=== PATIENT | female | born 1965 | race American Indian/Alaskan Native ===

== ENCOUNTER 2018-12-13 07:47 | Outpatient (CLI) | payer OTHER ==
--- NOTE | 2018-12-14 12:38 | Nuclear Medicine Report ---
NUCLEAR MEDICINE THYROID UPTAKE MULTIPLE HISTORY: Goiter, ultrasound demonstrates complete nodule mid pole of left lobe and right lobe COMPARISON: None at this facility. TECHNIQUE: 236.8 uCi of I-123 was administered. Anterior and oblique images of the thyroid bed were o btained. 4 and 23 hour uptake values were obtained. FINDINGS: The nuclear medicine images demonstrate a relative cold defect in the mid to superior right thyroid l obe. There is homogeneous distribution of the radiotracer throughout the left lobe and isthmus. 4 hour uptake measures 10.0%. Normal range 4-18%. 23 hour uptake measures 19.5%. Normal range 18-36%. IMPRESSION: 4 and 23 hour uptake values are within normal limits. Focal cold defect in the mid to superior right thyroid lobe. Signer Name: Ever Pires Jr, MD Signed: 12/14/2018 12:34 PM Workstation Name: [id number]
== END 2018-12-13 07:48 | disposition home or self-care (01) ==
LOC: NM 07:47
PROVIDERS: ATTEND Nurse Practitioner
DX: E04.2 Nontoxic multinodular goiter (principal); I11.0 Hypertensive heart disease with heart failure; I50.9 Heart failure, unspecified
CPT/HCPCS: 78012; A9516

== ENCOUNTER 2020-01-15 19:20 | Inpatient (IN) | payer OTHER ==
--- NOTE | 2020-01-15 21:09 | Event Note ---
ED Screening Note ED Screening Note: Patient presents for anasarca and shortness of breath History of cirrhosis On EMS arrival patient hypoxic at 85% and placed on oxygen With oxygen hypoxia has improved Dr. Resendez, ER attending is aware of case and is going to discuss with charge nurse mona to get a room CAITLYN This initial assessment/diagnostic orders/clinical plan/treatment(s) is/are subject to change based on patients health status, clinical progression and re- assessment by fellow clinical providers in the ED. Further treatment and workup at subsequent clinical providers discretion. Patient/guardian urged not to elope from the ED as their condition may be serious if not clinically assessed and managed. Initial orders include: Labs, EKG, x-ray
[2020-01-15 21:33] LABS: INR 1.19 (0.87-1.13); Partial Thromboplastin Time 25.2 Sec. (24.2-36.6)
[2020-01-15 21:34] LABS: Basophils # (Auto) 0.1 K/mm3 (0.0-0.1); Eosinophils % (Auto) 0.3 % (0.0-4.3); Lymphocytes # (Auto) 0.7 K/mm3 (1.2-5.4); Lymphocytes % (Auto) 12.5 % (13.4-35.0); Mean Corpuscular HGB Conc 30 % (30-34); Monocytes # (Auto) 0.4 K/mm3 (0.0-0.8); Monocytes % (Auto) 6.3 % (0.0-7.3); Platelet Count 204 K/mm3 (140-440); Red Blood Count 6.11 M/mm3 (3.65-5.03)
[2020-01-15 21:35] LABS: Hematocrit 39.3 % (30.3-42.9); Hemoglobin 11.9 gm/dl (10.1-14.3); Mean Corpuscular Volume 64 fl (79-97); Red Cell Distribution Width 20.4 % (13.2-15.2)
[2020-01-15 21:43] LABS: Alanine Aminotransferase 24 units/L (7-56); Albumin 3.3 g/dL (3.9-5); Blood Urea Nitrogen 13 mg/dL (7-17); Hemolysis Index 5
[2020-01-15 21:49] LABS: BUN/Creatinine Ratio 19
--- NOTE | 2020-01-15 21:49 | XRay Report ---
CHEST 2 VIEWS INDICATION / CLINICAL INFORMATION: MAIN. COMPARISON: 07/13/2011 FINDINGS: SUPPORT DEVICES: None. HEART / MEDIASTINUM: Cardiomegaly LUNGS / PLEURA: Mild interstitial pulmonary edema with possible small pleural effusions No pneumothor ax. ADDITIONAL FINDINGS: No significant additional findings. IMPRESSION: Mild interstitial pulmonary edema with possible small pleural effusions Signer Name: Yang Lincoln MD FACR Signed: 01/15/2020 9:45 PM Workstation Name: [id number]
[2020-01-15 22:16] LABS: Chol/HDL Ratio 3.02 %; HDL Cholesterol 35 mg/dL (40-59); LDL Cholesterol,Direct 60 mg/dL (50-130)
[2020-01-15] MEDS ORDERED: ASPIRIN 325 MG TAB PO ONE (23:17)
[2020-01-15] MEDS ORDERED: FUROSEMIDE 40 MG/4 ML INJ IV ONE (23:20)
[2020-01-15] MEDS ORDERED: HEPARIN 10,000 UNITS/10 ML VIAL IV ONE (23:44)
--- NOTE | 2020-01-15 23:51 | Emergency Department Report ---
ED Shortness of Breath HPI - General Chief Complaint: Dyspnea/Respdistress Stated Complaint: SWELLING Time Seen by Provider: 01/15/20 21:08 Source: patient Mode of arrival: Wheelchair Limitations: No Limitations - History of Present Illness Initial Comments: 54-year-old female with a past medical history of obesity and hypertension presents to the hospital planing 1 month of progressively worsening shortness of breath and generalized edema. Patient states she has been noncompliant with her amlodipine "20 mg" a day dose for the last 3 weeks. She complains of progressively worsening orthopnea, dry cough, and lower extremity edema extending upwards to her abdominal wall and breast tissue. Patient states she has some slight left-sided chest pain earlier today which has resolved. She denies nausea, vomiting, diaphoresis, recent travel, history of PE/DVT, fever, loss of sense of taste or smell, recent Covid test, Covid exposure, or tobacco use. Patient does not take aspirin daily. As per medical record patient also has a "history of cardiac surgery for left ventricular defect as a child" and a heart murmur. As per triage the patient had a room air saturation of 89% upon EMS arrival however, upon arrival to her room in the ED remained saturation ranging from 93 to 95%. - Related Data Previous Rx's Medication Instructions Recorded Last Taken Type Famotidine [Pepcid] 10 mg PO BID #20 tablet 08/08/13 Unknown Rx diphenhydrAMINE [Benadryl] 25 mg PO Q8HR PRN #30 capsule 08/08/13 Unknown Rx hydroCHLOROthiazide [Hctz] 12.5 mg PO QDAY #30 capsule 08/08/13 Unknown Rx Allergies Allergy/AdvReac Type Severity Reaction Status Date / Time No Known Allergies Allergy Verified 08/08/13 11:26 ED Review of Systems ROS: Stated complaint: SWELLING Other details as noted in HPI Comment: All other systems reviewed and negative ED Past Medical Hx - Past Medical History Previous Medical History?: Yes Hx Hypertension: Yes (currently taking losartan for hypertension) Hx CVA: No Hx Heart Attack/AMI: No Hx Congestive Heart Failure: (has a history of cardiac surgery for left ventricular defect as a child) Hx Diabetes: No Hx Deep Vein Thrombosis: No Hx Pulmonary Embolism: No Hx GERD: No Hx Liver Disease: No Hx Renal Disease: No Hx Sickle Cell Disease: No Hx Arthritis: No Hx Headaches / Migraines: No Hx Seizures: No Hx Kidney Stones: No Hx Psychiatric Treatment: No Hx COPD: No Hx Tuberculosis: No Additional medical history: murmur. uterine fibroids. - Surgical History Past Surgical History?: Yes Hx Open Heart Surgery: Yes (repair hole in ventricle) Additional Surgical History: tubal ligation - Social History Smoking Status: Never Smoker Substance Use Type: None - Medications Home Medications: Home Medications Medication Instructions Recorded Confirmed Last Taken Type Famotidine [Pepcid] 10 mg PO BID #20 tablet 08/08/13 Unknown Rx diphenhydrAMINE [Benadryl] 25 mg PO Q8HR PRN #30 capsule 08/08/13 Unknown Rx hydroCHLOROthiazide [Hctz] 12.5 mg PO QDAY #30 capsule 08/08/13 Unknown Rx ED Physical Exam - General Limitations: No Limitations - Other Other exam information: General: No acute distress Head: Atraumatic Eyes: normal appearance ENT: Moist mucous membranes Neck: Normal appearance, no midline tenderness Chest: Bilateral crackles, no tachypnea or accessory muscle use CV: Regular rate and rhythm Abdomen: Soft, normal bowel sounds, abdominal wall edema nontender, nondistended, no rebound or guarding Back: Normal inspection Extremity: 3+ pitting edema to lower extremities with edema extending up to abdo tez wall and breast tissue Neuro: Alert O x 3, no facial asymmetry, speech clear, no gross motor sensory deficit Psych: Appropriate behavior Skin: No rash ED Course Vital Signs 01/15/20 01/15/20 01/15/20 19:40 19:41 20:52 Temperature 98.5 F 97.5 F L Pulse Rate 124 H 115 H 106 H Respiratory 24 24 18 Rate Blood Pressure 151/89 112/73 O2 Sat by Pulse 95 100 100 Oximetry - Consultations Consultation #1: 01/15/20 23:47 Case was discussed with on-call weight loss sales consultant Dr. Delvin Crocker who recommends heparin drip and will consult ED Medical Decision Making - Lab Data Result diagrams: 01/15/20 21:01 01/15/20 21:01 Lab Results 01/15/20 01/15/20 01/15/20 Range/Units 21:01 21:01 21:01 WBC 5.8 (4.5-11.0) K/mm3 RBC 6.11 H (3.65-5.03) M/mm3 Hgb 11.9 (10.1-14.3) gm/dl Hct 39.3 (30.3-42.9) % MCV 64 L (79-97) fl MCH 19 L (28-32) pg MCHC 30 (30-34) % RDW 20.4 H (13.2-15.2) % Plt Count 204 (140-440) K/mm3 Lymph % (Auto) 12.5 L (13.4-35.0) % Lander % (Auto) 6.3 (0.0-7.3) % Eos % (Auto) 0.3 (0.0-4.3) % Baso % (Auto) Vp Sales Lymph # (Auto) 0.7 L (1.2-5.4) K/mm3 Lander # (Auto) 0.4 (0.0-0.8) K/mm3 Eos # (Auto) 0.0 (0.0-0.4) K/mm3 Baso # (Auto) 0.1 (0.0-0.1) K/mm3 Seg Neutrophils % 79.8 H (40.0-70.0) % Seg Neutrophils # 4.7 (1.8-7.7) K/mm3 PT 15.1 H (12.2-14.9) Sec. INR 1.19 H (0.87-1.13) APTT 25.2 (24.2-36.6) Sec. Sodium 137 (137-145) mmol/L Potassium 4.4 (3.6-5.0) mmol/L Chloride 100.9 (98-107) mmol/L Carbon Dioxide 25 (22-30) mmol/L Anion Gap 16 mmol/L BUN 13 (7-17) mg/dL Creatinine 0.7 (0.6-1.2) mg/dL Estimated GFR > 60 ml/min BUN/Creatinine Ratio 19 % Glucose 127 H (65-100) mg/dL Calcium 9.0 (8.4-10.2) mg/dL Total Bilirubin 0.40 (0.1-1.2) mg/dL AST 37 (5-40) units/L ALT 24 (7-56) units/L Alkaline Phosphatase 62 (35-129) units/L Troponin T 0.286 H* (0.00-0.029) ng/mL NT-Pro-B Natriuret Pep 1893 H (0-900) pg/mL Total Protein 5.8 L (6.3-8.2) g/dL Albumin 3.3 L (3.9-5) g/dL Albumin/Globulin Ratio 1.3 % Triglycerides 81 (2-149) mg/dL Cholesterol 106 (50-199) mg/dL LDL Cholesterol Direct 60 (50-130) mg/dL HDL Cholesterol 35 L (40-59) mg/dL Cholesterol/HDL Ratio 3.02 % Lipase 38 (13-60) units/L 01/15/20 Range/Units 22:23 WBC (4.5-11.0) K/mm3 RBC (3.65-5.03) M/mm3 Hgb (10.1-14.3) gm/dl Hct (30.3-42.9) % MCV (79-97) fl MCH (28-32) pg MCHC (30-34) % RDW (13.2-15.2) % Plt Count (140-440) K/mm3 Lymph % (Auto) (13.4-35.0) % Lander % (Auto) (0.0-7.3) % Eos % (Auto) (0.0-4.3) % Baso % (Auto) Lymph # (Auto) (1.2-5.4) K/mm3 Lander # (Auto) (0.0-0.8) K/mm3 Eos # (Auto) (0.0-0.4) K/mm3 Baso # (Auto) (0.0-0.1) K/mm3 Seg Neutrophils % (40.0-70.0) % Seg Neutrophils # (1.8-7.7) K/mm3 PT (12.2-14.9) Sec. INR (0.87-1.13) APTT (24.2-36.6) Sec. Sodium (137-145) mmol/L Potassium (3.6-5.0) mmol/L Chloride (98-107) mmol/L Carbon Dioxide (22-30) mmol/L Anion Gap mmol/L BUN (7-17) mg/dL Creatinine (0.6-1.2) mg/dL Estimated GFR ml/min BUN/Creatinine Ratio % Glucose (65-100) mg/dL Calcium (8.4-10.2) mg/dL Total Bilirubin (0.1-1.2) mg/dL AST (5-40) units/L ALT (7-56) units/L Alkaline Phosphatase (35-129) units/L Troponin T 0.368 H* D (0.00-0.029) ng/mL NT-Pro-B Natriuret Pep (0-900) pg/mL Total Protein (6.3-8.2) g/dL Albumin (3.9-5) g/dL Albumin/Globulin Ratio % Triglycerides (2-149) mg/dL Cholesterol (50-199) mg/dL LDL Cholesterol Direct (50-130) mg/dL HDL Cholesterol (40-59) mg/dL Cholesterol/HDL Ratio % Lipase (13-60) units/L - EKG Data -: EKG Interpreted by Me (pvc's RBBB, LPFB) EKG shows normal: sinus rhythm, ST-T waves (no stemi) Rate: tachycardia (103) - Radiology Data Radiology results: report reviewed CHEST 2 VIEWS INDICATION / CLINICAL INFORMATION: MAIN. COMPARISON: 07/13/2011 FINDINGS: SUPPORT DEVICES: None. HEART / MEDIASTINUM: Cardiomegaly LUNGS / PLEURA: Mild interstitial pulmonary edema with possible small pleural effusions No pneumothorax. ADDITIONAL FINDINGS: No significant additional findings. IMPRESSION: Mild interstitial pulmonary edema with possible small pleural effusions - Medical Decision Making 54-year-old female presents to the hospital with classic symptoms of shortness of breath and edema. Positive new onset CHF with BP medication noncompliance. Patient did endorse some mild chest pain earlier today has elevated troponin x2 without ST elevation NV on EKG. Case discussed with weight loss sales consultant and consult ordered. In addition to Lasix, aspirin, heparin drip initiated. Supplemental oxygen as needed. Patient to be admitted to telemetry under the hospitalist service. Critical Care Time: No Critical care attestation.: If time is entered above; I have spent that time in minutes in the direct care of this critically ill patient, excluding procedure time. ED Disposition Clinical Impression: New onset of congestive heart failure, Anasarca, Pulmonary edema, Noncompliance with medication regimen, Elevated troponin, History of hypertension Disposition: OP ADMIT IP TO THIS HOSP Is pt being admited?: Yes Condition: Stable Instructions: Pulmonary Edema (ED) Referrals: PRIMARY CARE, [Primary Care Provider] - 3-5 Days Time of Disposition: 23:57 (Dr Guerra/hosp)
[2020-01-16] MEDS: HEPARIN/ 0.45% NACL DRIP 25,000 UNIT/500 ML BAG IV SCH ×2 (03:26→14:28)
[2020-01-16] MEDS ORDERED: MORPHINE 2 MG/1 ML INJ IV PRN (03:50)
[2020-01-16] MEDS ORDERED: MAGNESIUM HYDROXIDE (MOM) ORAL LIQD UDC PO PRN (03:50)
[2020-01-16] MEDS ORDERED: NITROGLYCERIN 0.4 MG TAB SUBL SL PRN ×2 (03:50)
[2020-01-16] MEDS ORDERED: MORPHINE 4 MG/1 ML INJ IV PRN (03:50)
[2020-01-16] MEDS ORDERED: ACETAMINOPHEN 325 MG TAB PO PRN (03:50)
[2020-01-16] MEDS ORDERED: ONDANSETRON 4 MG/2 ML INJ IV PRN (03:50)
--- NOTE | 2020-01-16 04:06 | History and Physical Report ---
History of Present Illness Date of examination: 01/15/20 Date of admission: 01/15/20 23:58 Chief complaint: Shortness of breath Chest Pain History of present illness: 54-year-old -[place] female with known history of hypertension, obesity presenting to the emergency room today complaining of shortness of breath and generalized swelling especially in the lower extremity. This has been getting progressively worse over the past 1 month. She admits that she has not been quite compliant with blood pressure medication amlodipine in the last 3 weeks. Patient has had some cough which is nonproductive, she has had orthopnea, swelling in the lower extremities and also the abdomen. She has had some intermittent left-sided chest pain which has since resolved. Patient denies any nausea or vomiting, denies any headache or dizziness, denies any diaphoresis, denies any sick contacts or recent travel. Denies any contact with anyone with COVID-19. Upon arrival in the emergency room today patient was slightly hypoxic on room air with O2 saturation ranging from 89% to 93%. Work-up in the emergency room reveals pulmonary edema. Troponin was also slightly elevated. Patient is being admitted for new onset CHF and elevated troponin. Past History Past Medical History: hypertension Past Surgical History: Other (Heart surgery in childhood,surgery for Uterine fibroid.) Social history: no significant social history Family history: no significant family history Medications and Allergies Allergies Allergy/AdvReac Type Severity Reaction Status Date / Time No Known Allergies Allergy Verified 08/08/13 11:26 Home Medications Medication Instructions Recorded Confirmed Last Taken Type Famotidine [Pepcid] 10 mg PO BID #20 tablet 08/08/13 Unknown Rx diphenhydrAMINE [Benadryl] 25 mg PO Q8HR PRN #30 capsule 08/08/13 Unknown Rx hydroCHLOROthiazide [Hctz] 12.5 mg PO QDAY #30 capsule 08/08/13 Unknown Rx Active Meds: Active Medications Acetaminophen (Tylenol) 650 mg PO Q4H PRN PRN Reason: Pain MILD(1-3)/Fever >100.5/AMAYA Acetaminophen (Tylenol) 650 mg PO Q6H PRN PRN Reason: Pain, Mild (1-3) Aspirin (Ecotrin) 325 mg PO QDAY NESTOR Furosemide (Lasix) 40 mg IV BID@0600,1800 [facility] Heparin Sodium/Sodium Chloride (Heparin/ 0.45% Nacl-25,000 Unit/500 Ml) 25,000 unit in 500 mls @ 20 mls/hr IV TITRATE NESTOR; Protocol Last Admin: 01/16/20 03:26 Dose: 1,000 units/hr, 20 mls/hr Documented by: Magnesium Hydroxide (Milk Of Magnesia) 30 ml PO Q4H PRN PRN Reason: Constipation Morphine Sulfate (Morphine) 2 mg IV Q5MIN PRN PRN Reason: Chest Pain Morphine Sulfate (Morphine) 2 mg IV Q5MIN PRN PRN Reason: Chest Pain unrelieved by NTG Nitroglycerin (Nitrostat) 0.4 mg SL Q5M PRN PRN Reason: Chest Pain Nitroglycerin (Nitrostat) 0.4 mg SL .Q5MIN PRN PRN Reason: Chest Pain Ondansetron HCl (Zofran) 4 mg IV Q8H PRN PRN Reason: Nausea And Vomiting Sodium Chloride (Sodium Chloride Flush Syringe 10 Ml) 10 ml IV BID NESTOR Sodium Chloride (Sodium Chloride Flush Syringe 10 Ml) 10 ml IV PRN PRN PRN Reason: LINE FLUSH Sodium Chloride (Sodium Chloride Flush Syringe 10 Ml) 10 ml IV PRN PRN PRN Reason: LINE FLUSH Review of Systems Constitutional: no fever, no chills Ears, nose, mouth and throat: no nasal congestion, no sore throat Cardiovascular: chest pain, shortness of breath, no palpitations Respiratory: no cough, no wheezing Gastrointestinal: no abdominal pain, no nausea, no vomiting, no diarrhea Genitourinary Female: no flank pain, no dysuria, no hematuria Musculoskeletal: no neck pain, no low back pain Integumentary: no rash, no pruritis Neurological: no headaches, no confusion Psychiatric: no anxiety, no depression Exam - Constitutional Vitals: Temp Pulse Resp BP Pulse Ox 97.5 F L 106 H 18 112/73 100 01/15/20 20:52 01/15/20 20:52 01/15/20 20:52 01/15/20 20:52 01/15/20 20:52 General appearance: Present: no acute distress, well-nourished - EENT Eyes: Present: PERRL, EOM intact. Absent: scleral icterus ENT: hearing intact, clear oral mucosa, dentition normal - Neck Neck: Present: supple, normal ROM - Respiratory Respiratory effort: normal Respiratory: bilateral: rales - Cardiovascular Rhythm: regular Heart Sounds: Present: S1 & S2. Absent: gallop, rub - Extremities Extremities: no ischemia, pulses intact, pulses symmetrical, Full ROM Extremity abnormal: edema (2+ fartun. lower extremity edema) Peripheral Pulses: within normal limits - Abdominal General gastrointestinal: Present: soft, non-tender, non-distended, normal bowel sounds, other (abdominal wall edema). Absent: mass - Integumentary Integumentary: Present: clear, warm, dry. Absent: rash - Musculoskeletal Musculoskeletal: strength equal bilaterally - Psychiatric Psychiatric: appropriate mood/affect, intact judgment & insight, memory intact, cooperative - Neurologic Neurologic: CNII-XII intact, no focal deficits, moves all extremities HEART Score - HEART Score History: Moderately suspicious EKG: Non-specific Age: 45-65 Risk factors: 1-2 risk factors Troponin: Troponin T 0.274 ng/mL (0.00-0.029) H* D 01/16/20 01:23 Troponin: 1-3x normal limit HEART Score: 5 Results - Labs CBC & Chem 7: 01/15/20 21:01 01/15/20 21:01 Labs: Abnormal lab results 01/15/20 01/15/20 01/15/20 Range/Units 21:01 21:01 21:01 RBC 6.11 H (3.65-5.03) M/mm3 MCV 64 L (79-97) fl MCH 19 L (28-32) pg RDW 20.4 H (13.2-15.2) % Lymph % (Auto) 12.5 L (13.4-35.0) % Lymph # (Auto) 0.7 L (1.2-5.4) K/mm3 Seg Neutrophils % 79.8 H (40.0-70.0) % PT 15.1 H (12.2-14.9) Sec. INR 1.19 H (0.87-1.13) Glucose 127 H (65-100) mg/dL Troponin T 0.286 H* (0.00-0.029) ng/mL NT-Pro-B Natriuret Pep 1893 H (0-900) pg/mL Total Protein 5.8 L (6.3-8.2) g/dL Albumin 3.3 L (3.9-5) g/dL HDL Cholesterol 35 L (40-59) mg/dL 01/15/20 01/16/20 Range/Units 22:23 01:23 RBC (3.65-5.03) M/mm3 MCV (79-97) fl MCH (28-32) pg RDW (13.2-15.2) % Lymph % (Auto) (13.4-35.0) % Lymph # (Auto) (1.2-5.4) K/mm3 Seg Neutrophils % (40.0-70.0) % PT (12.2-14.9) Sec. INR (0.87-1.13) Glucose (65-100) mg/dL Troponin T 0.368 H* D 0.274 H* D (0.00-0.029) ng/mL NT-Pro-B Natriuret Pep (0-900) pg/mL Total Protein (6.3-8.2) g/dL Albumin (3.9-5) g/dL HDL Cholesterol (40-59) mg/dL Assessment and Plan - Patient Problems (1) New onset of congestive heart failure Current Visit: Yes Status: Acute Plan to address problem: Patient placed on diuretics. Will monitor input and output and also monitor daily weight. Patient will be scheduled for echocardiogram. We will request cardiology evaluation. (2) Elevated troponin Current Visit: Yes Status: Acute Plan to address problem: We will check serial cardiac enzymes.. Patient started on heparin drip. We will await further evaluation by cardiology. (3) History of hypertension Current Visit: Yes Status: Acute Plan to address problem: We will continue routine home medications once reconciled and monitor vital signs closely. (4) Full code status Current Visit: Yes Status: Acute
[2020-01-16] MEDS: FUROSEMIDE 40 MG/4 ML INJ IV SCH ×2 (08:25→17:07)
--- NOTE | 2020-01-16 12:49 | Consultation ---
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 She is previously unknown to our practice. She presented with c/o progressively worsening SOB, orthopnea, generalized edema and BLE edema for approx 1 month prior to arrival. Pt admits to noncompliance with her home anti-hypertensive regimen - has not taken BP meds in approx 3 weeks because she was trying to control her BP with apple cider vinegar. She denies any chest pain, palpitations, n/v, diaphoresis, dizziness or syncope. She denies any known prior CAD, AMI, HF or arrhythmia. Admission BP 163/89. CXR shows pulmonary edema and pleural effusions. Labwork is significant for pro-BNP 1893 and elevated troponin (0.368 -> 0.274) for which pt was initiated on heparin gtt overnight. Past History Past Medical History: hypertension Past Surgical History: Other (Heart surgery in childhood,surgery for Uterine fibroid.) Social history: no significant social history Family history: no significant family history Medications and Allergies Allergies Allergy/AdvReac Type Severity Reaction Status Date / Time No Known Allergies Allergy Verified 08/08/13 11:26 Home Medications Medication Instructions Recorded Confirmed Last Taken Type Famotidine [Pepcid] 10 mg PO BID #20 tablet 08/08/13 01/16/20 Unknown Rx diphenhydrAMINE [Benadryl] 25 mg PO Q8HR PRN #30 capsule 08/08/13 01/16/20 Unknown Rx hydroCHLOROthiazide [Hctz] 12.5 mg PO QDAY #30 capsule 08/08/13 01/16/20 Unknown Rx Active Meds: Active Medications Acetaminophen (Tylenol) 650 mg PO Q4H PRN PRN Reason: Pain MILD(1-3)/Fever >100.5/AMAYA Furosemide (Lasix) 40 mg IV BID@0600,1800 NESTOR Last Admin: 01/16/20 08:25 Dose: Not Given Documented by: Heparin Sodium/Sodium Chloride (Heparin/ 0.45% Nacl-25,000 Unit/500 Ml) 25,000 unit in 500 mls @ 20 mls/hr IV TITRATE NESTOR; Protocol Last Admin: 01/16/20 03:26 Dose: 1,000 units/hr, 20 mls/hr Documented by: Magnesium Hydroxide (Milk Of Magnesia) 30 ml PO Q4H PRN PRN Reason: Constipation Ondansetron HCl (Zofran) 4 mg IV Q8H PRN PRN Reason: Nausea And Vomiting Sodium Chloride (Sodium Chloride Flush Syringe 10 Ml) 10 ml IV BID NESTOR Last Admin: 01/16/20 09:42 Dose: 10 ml Documented by: Sodium Chloride (Sodium Chloride Flush Syringe 10 Ml) 10 ml IV PRN PRN PRN Reason: LINE FLUSH Review of Systems Constitutional: weight gain, no fever, no chills, no sweats Ears, nose, mouth and throat: no ear pain, no nose pain, no sinus pressure, no sinus pain Cardiovascular: orthopnea, edema, shortness of breath, dyspnea on exertion, paroxysmal nocturnal dyspnea, high blood pressure, leg edema, decreased exercise tolerance, no chest pain, no palpitations, no rapid/irregular heart beat, no syncope, no lightheadedness Respiratory: shortness of breath, dyspnea on exertion, no cough, no congestion, no wheezing Gastrointestinal: no abdominal pain, no nausea, no vomiting, no diarrhea, no constipation, no change in bowel habits Genitourinary Female: no pelvic pain, no flank pain, no dysuria, no urinary frequency, no urgency Musculoskeletal: no neck stiffness, no neck pain, no shooting arm pain, no arm numbness/tingling, no low back pain, no shooting leg pain Integumentary: no rash, no pruritis, no redness, no sores, no wounds Neurological: no head injury, no paralysis, no weakness, no parathesias, no numbness, no tingling, no seizures, no syncope Psychiatric: no anxiety Endocrine: no cold intolerance, no heat intolerance Hematologic/Lymphatic: no easy bruising, no easy bleeding Allergic/Immunologic: no urticaria Physical Examination Vital Signs Pulse Resp Pulse Ox 124 H 24 95 01/15/20 19:40 01/15/20 19:40 01/15/20 19:40 General appearance: no acute distress HEENT: Positive: PERRL, Normocephaly, Mucus Membranes Moist Neck: Positive: neck supple, trachea midline Cardiac: Positive: Reg Rate and Rhythm, S1/S2 Lungs: Positive: Decreased Breath Sounds, Oxygen Neuro: Positive: Grossly Intact Abdomen: Negative: Tender Skin: Negative: Rash Musculoskeletal: No Pain Extremities: Present: edema (generalized), +2 Edema (BLE) Results 01/15/20 21:01 01/15/20 21: Cardiac Enzymes 01/15/20 Range/Units 21:01 AST 37 (5-40) units/L Coagulation 01/15/20 Range/Units 21:01 PT 15.1 H (12.2-14.9) Sec. INR 1.19 H (0.87-1.13) APTT 25.2 (24.2-36.6) Sec. Lipids 01/15/20 Range/Units 21: Triglycerides 81 (2-149) mg/dL Cholesterol 106 (50-199) mg/dL HDL Cholesterol 35 L (40-59) mg/dL Cholesterol/HDL Ratio 3.02 % CBC 01/15/20 Range/Units 21:01 WBC 5.8 (4.5-11.0) K/mm3 RBC 6.11 H (3.65-5.03) M/mm3 Hgb 11.9 (10.1-14.3) gm/dl Hct 39.3 (30.3-42.9) % Plt Count 204 (140-440) K/mm3 Lymph # (Auto) 0.7 L (1.2-5.4) K/mm3 [place] # (Auto) 0.4 (0.0-0.8) K/mm3 Eos # (Auto) 0.0 (0.0-0.4) K/mm3 Baso # (Auto) 0.1 (0.0-0.1) K/mm3 Comprehensive Metabolic Panel 01/15/20 Range/Units 21:01 Sodium 137 (137-145) mmol/L Potassium 4.4 (3.6-5.0) mmol/L Chloride 100.9 (98-107) mmol/L Carbon Dioxide 25 (22-30) mmol/L BUN 13 (7-17) mg/dL Creatinine 0.7 (0.6-1.2) mg/dL Glucose 127 H (65-100) mg/dL Calcium 9.0 (8.4-10.2) mg/dL AST 37 (5-40) units/L ALT 24 (7-56) units/L Alkaline Phosphatase 62 (35-129) units/L Total Protein 5.8 L (6.3-8.2) g/dL Albumin 3.3 L (3.9-5) g/dL - Imaging and Cardiology Echo: pending EKG: report reviewed, image reviewed EKG interpretations - Telemetry EKG Rhythm: Sinus Rhythm - EKG Sinus rhythms and dysrhythmias: sinus rhythm AV and intraventricular conduction: right bundle branch block Assessment and Plan Agree with heparin gtt in setting elevated Damian, although CE elevation appears c/w NSTEMI type II. Cont to trend Damian and f/u ECG in AM. Of note, ECG shows NSR with RBBB of unknown chronicity. Initiate GDMT and cont IV lasix BID. Await echo. Will likely proceed with coronary angiogram once volume status and respiratory status are optimized. Will follow. The patient has been seen in conjunction with Dr. Moore who agrees with the assessment and plan of care. 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
--- NOTE | 2020-01-16 14:41 | Progress Note ---
Assessment and Plan Assessment and plan: (1) New onset of congestive heart failure Current Visit: Yes Status: Acute Plan to address problem: Patient placed on diuretics. Will monitor input and output and also monitor daily weight. Patient will be scheduled for echocardiogram. We will request cardiology evaluation. (2) Elevated troponin Current Visit: Yes Status: Acute Plan to address problem: We will check serial cardiac enzymes.. Patient started on heparin drip. We will await further evaluation by cardiology. (3) History of hypertension Current Visit: Yes Status: Acute Plan to address problem: We will continue routine home medications once reconciled and monitor vital signs closely. (4) Full code status Current Visit: Yes Status: Acute Disposition; continue inpatient care History Interval history: Patient was seen and evaluated this morning Patient is still complaining shortness of breath but improving from admission condition Hospitalist Physical - Physical exam Narrative exam: Not in cardiopulmonary distress. The patient appeared well nourished and normally developed. Vital signs as documented. Head exam is unremarkable. No scleral icterus . Neck is without jugular venous distension, thyromegaly, or carotid bruits. Lungs significant for rales. Cardiac exam reveals regular rate and Rhythm. Abdominal exam reveals normal bowel sounds, nontender, no organomegaly. Extremities are +2 pedal and pretibial edema. 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 No focal weakness. - Constitutional Vitals: Temp Pulse Resp BP Pulse Ox 98.3 F 98 H 20 151/86 96 01/16/20 13:00 01/16/20 13:00 01/16/20 13:00 01/16/20 13:00 01/16/20 13:00 General appearance: Present: no acute distress HEART Score - HEART Score EKG: Non-specific Age: 45-65 Risk factors: 1-2 risk factors Troponin: Troponin T 0.274 ng/mL (0.00-0.029) H* D 01/16/20 01:23 Troponin: 1-3x normal limit Results - Labs CBC & Chem 7: 01/15/20 21:01 01/15/20 21:01 Labs: Laboratory Last Values WBC 5.8 K/mm3 (4.5-11.0) 01/15/20 21:01 RBC 6.11 M/mm3 (3.65-5.03) H 01/15/20 21:01 Hgb 11.9 gm/dl (10.1-14.3) 01/15/20 21:01 Hct 39.3 % (30.3-42.9) 01/15/20 21: MCV 64 fl (79-97) L 01/15/20 21:01 MCH 19 pg (28-32) L 01/15/20 21:01 MCHC 30 % (30-34) 01/15/20 21: RDW 20.4 % (13.2-15.2) H 01/15/20 21:01 Plt Count 204 K/mm3 (140-440) 01/15/20 21:01 Lymph % (Auto) 12.5 % (13.4-35.0) L 01/15/20 21:01 [place] % (Auto) 6.3 % (0.0-7.3) 01/15/20 21: Eos % (Auto) 0.3 % (0.0-4.3) 01/15/20 21: Baso % (Auto) Firmware Engineer 01/15/20 21: Lymph # (Auto) 0.7 K/mm3 (1.2-5.4) L 01/15/20 21:01 [place] # (Auto) 0.4 K/mm3 (0.0-0.8) 01/15/20 21:01 Eos # (Auto) 0.0 K/mm3 (0.0-0.4) 01/15/20 21:01 Baso # (Auto) 0.1 K/mm3 (0.0-0.1) 01/15/20 21: Seg Neutrophils % 79.8 % (40.0-70.0) H 01/15/20 21: Seg Neutrophils # 4.7 K/mm3 (1.8-7.7) 01/15/20 21:01 PT 15.1 Sec. (12.2-14.9) H 01/15/20 21: INR 1.19 (0.87-1.13) H 01/15/20 21:01 APTT 25.2 Sec. (24.2-36.6) 01/15/20 21:01 Heparin Anti-Xa Level 0.55 U.I./ml (0.3-0.7) 01/16/20 09:59 Sodium 137 mmol/L (137-145) 01/15/20 21:01 Potassium 4.4 mmol/L (3.6-5.0) 01/15/20 21:01 Chloride 100.9 mmol/L (98-107) 01/15/20 21:01 Carbon Dioxide 25 mmol/L (22-30) 01/15/20 21:01 Anion Gap 16 mmol/L 01/15/20 21:01 BUN 13 mg/dL (7-17) 01/15/20 21:01 Creatinine 0.7 mg/dL (0.6-1.2) 01/15/20 21:01 Estimated GFR > 60 ml/min 01/15/20 21:01 BUN/Creatinine Ratio 19 % 01/15/20 21:01 Glucose 127 mg/dL (65-100) H 01/15/20 21:01 Calcium 9.0 mg/dL (8.4-10.2) 01/15/20 21:01 Total Bilirubin 0.40 mg/dL (0.1-1.2) 01/15/20 21:01 AST 37 units/L (5-40) 01/15/20 21:01 ALT 24 units/L (7-56) 01/15/20 21:01 Alkaline Phosphatase 62 units/L (35-129) 01/15/20 21:01 Troponin T 0.274 ng/mL (0.00-0.029) H* D 01/16/20 01:23 NT-Pro-B Natriuret Pep 1893 pg/mL (0-900) H 01/15/20 21:01 Total Protein 5.8 g/dL (6.3-8.2) L 01/15/20 21:01 Albumin 3.3 g/dL (3.9-5) L 01/15/20 21:01 Albumin/Globulin Ratio 1.3 % 01/15/20 21:01 Triglycerides 81 mg/dL (2-149) 01/15/20 21:01 Cholesterol 106 mg/dL (50-199) 01/15/20 21:01 LDL Cholesterol Direct 60 mg/dL (50-130) 01/15/20 21:01 HDL Cholesterol 35 mg/dL (40-59) L 01/15/20 21:01 Cholesterol/HDL Ratio 3.02 % 01/15/20 21:01 Lipase 38 units/L (13-60) 01/15/20 21:01 Cao/IV: Voiding Method External Female Catheter IV Catheter Type [Right Hand] INT / Saline Lock Active Medications - Current Medications Current Medications: Generic Name Dose Route Start Last Admin Trade Name Freq PRN Reason Stop Dose Admin Acetaminophen 650 mg 01/16/20 03:50 Tylenol PO Q4H PRN Pain MILD(1-3)/Fever >100.5/AMAYA Aspirin 325 mg 01/17/20 10:00 Aspirin PO QDAY [facility] Atorvastatin Calcium 40 mg 01/16/20 22:00 Lipitor PO QHS [facility]1983 Carvedilol 6.25 mg 01/16/20 22:00 Coreg PO BID [facility]1983 Furosemide 40 mg 01/16/20 06:00 01/16/20 08:25 Lasix IV Not Given BID@0600,1800 [facility] Heparin Sodium/Sodium Chloride 25,000 unit in 500 mls @ 20 mls/hr 01/15/20 23:45 01/16/20 14:28 Heparin/ 0.45% Nacl-25,000 Unit/500 Ml IV 1,000 units/hr TITRATE NESTOR 20 mls/hr Administration Protocol 1,000 UNITS/HR Losartan Potassium 25 mg 01/17/20 10:00 Cozaar PO QDAY [facility] Magnesium Hydroxide 30 ml 01/16/20 03:50 Milk Of Magnesia PO Q4H PRN Constipation Ondansetron HCl 4 mg 01/16/20 03:50 Zofran IV Q8H PRN Nausea And Vomiting Sodium Chloride 10 ml 01/16/20 10:00 01/16/20 09:42 Sodium Chloride Flush Syringe 10 Ml IV 10 ml BID [facility] Administration Sodium Chloride 10 ml 01/16/20 03:50 Sodium Chloride Flush Syringe 10 Ml IV PRN PRN LINE FLUSH
--- NOTE | 2020-01-16 18:13 | Event Note ---
Date: 01/16/20 Echocardiogram showed LV thrombus,would continue iv heparin.
[2020-01-16] MEDS: ACETAMINOPHEN 325 MG TAB PO PRN (21:41)
[2020-01-16] MEDS: carvediloL 6.25 MG TAB PO SCH (21:41)
[2020-01-17] MEDS: HEPARIN/ 0.45% NACL DRIP 25,000 UNIT/500 ML BAG IV SCH ×2 (04:35→11:05)
[2020-01-17] MEDS: FUROSEMIDE 40 MG/4 ML INJ IV SCH ×2 (05:16→17:23)
[2020-01-17 06:29] LABS: Basophils % (Auto) 0.6 % (0.0-1.8); Eosinophils # (Auto) 0.1 K/mm3 (0.0-0.4); Eosinophils % (Auto) 2.2 % (0.0-4.3); Lymphocytes # (Auto) 1.2 K/mm3 (1.2-5.4); Lymphocytes % (Auto) 22.7 % (13.4-35.0); Mean Corpuscular HGB Conc 30 % (30-34); Monocytes # (Auto) 0.6 K/mm3 (0.0-0.8); Monocytes % (Auto) 10.5 % (0.0-7.3); Platelet Count 196 K/mm3 (140-440); Red Blood Count 5.85 M/mm3 (3.65-5.03)
[2020-01-17 06:31] LABS: Hematocrit 36.8 % (30.3-42.9); Hemoglobin 11.2 gm/dl (10.1-14.3); Mean Corpuscular Volume 63 fl (79-97); Red Cell Distribution Width 20.4 % (13.2-15.2)
[2020-01-17 06:34] LABS: INR 1.13 (0.87-1.13)
[2020-01-17 06:47] LABS: Blood Urea Nitrogen 11 mg/dL (7-17); Calcium 8.8 mg/dL (8.4-10.2); Hemolysis Index 7
[2020-01-17 06:49] LABS: BUN/Creatinine Ratio 16
--- NOTE | 2020-01-17 09:11 | Progress Note ---
Assessment and Plan Assessment and plan: (1) New onset of congestive heart failure Current Visit: Yes Status: Acute Plan to address problem: Patient placed on diuretics. Will monitor input and output and also monitor daily weight. Patient will be scheduled for echocardiogram. We will request cardiology evaluation. Left ventricular thrombus -Echo was done and showed ejection fraction of 40 to 45%, basal inferoseptal and mid inferoseptal wall segments are akinetic. -There is a large left ventricular thrombus and patient is on heparin -Cardiology is following the patient (2) Elevated troponin Current Visit: Yes Status: Acute Plan to address problem: We will check serial cardiac enzymes.. Patient started on heparin drip. We will await further evaluation by cardiology. (3) History of hypertension Current Visit: Yes Status: Acute Plan to address problem: We will continue routine home medications once reconciled and monitor vital signs closely. (4) Full code status Current Visit: Yes Status: Acute Disposition; continue inpatient care History Interval history: Patient was seen and evaluated this morning Patient is still complaining shortness of breath but improving from admission condition Hospitalist Physical - Physical exam Narrative exam: Not in cardiopulmonary distress. The patient appeared well nourished and normally developed. Vital signs as documented. Head exam is unremarkable. No scleral icterus . Neck is without jugular venous distension, thyromegaly, or carotid bruits. Lungs significant for rales. Cardiac exam reveals regular rate and Rhythm. Abdominal exam reveals normal bowel sounds, nontender, no organomegaly. Extremities are +2 pedal and pretibial edema. NURSING EDUCATION SPECIALIST: Alert and oriented 3. No focal weakness. - Constitutional Vitals: Temp Pulse Resp BP Pulse Ox 97.8 F 96 H 20 117/72 97 01/17/20 07:54 01/17/20 08:42 01/17/20 08:42 01/17/20 07:54 01/17/20 07:54 General appearance: Present: no acute distress HEART Score - HEART Score EKG: Non-specific Age: 45-65 Risk factors: 1-2 risk factors Troponin: Troponin T 0.255 ng/mL (0.00-0.029) H* 01/17/20 05:34 Troponin: 1-3x normal limit Results - Labs CBC & Chem 7: 01/17/20 05:34 01/17/20 05:34 Labs: Laboratory Last Values WBC 5.3 K/mm3 (4.5-11.0) 01/17/20 05:34 RBC 5.85 M/mm3 (3.65-5.03) H 01/17/20 05:34 Hgb 11.2 gm/dl (10.1-14.3) 01/17/20 05:34 Hct 36.8 % (30.3-42.9) 01/17/20 05:34 MCV 63 fl (79-97) L 01/17/20 05:34 MCH 19 pg (28-32) L 01/17/20 05:34 MCHC 30 % (30-34) 01/17/20 05:34 RDW 20.4 % (13.2-15.2) H 01/17/20 05:34 Plt Count 196 K/mm3 (140-440) 01/17/20 05:34 Lymph % (Auto) 22.7 % (13.4-35.0) 01/17/20 05:34 [place] % (Auto) 10.5 % (0.0-7.3) H 01/17/20 05:34 Eos % (Auto) 2.2 % (0.0-4.3) 01/17/20 05:34 Baso % (Auto) 0.6 % (0.0-1.8) 01/17/20 05:34 Lymph # (Auto) 1.2 K/mm3 (1.2-5.4) 01/17/20 05:34 [place] # (Auto) 0.6 K/mm3 (0.0-0.8) 01/17/20 05:34 Eos # (Auto) 0.1 K/mm3 (0.0-0.4) 01/17/20 05:34 Baso # (Auto) 0.0 K/mm3 (0.0-0.1) 01/17/20 05:34 Seg Neutrophils % 64.0 % (40.0-70.0) 01/17/20 05:34 Seg Neutrophils # 3.4 K/mm3 (1.8-7.7) 01/17/20 05:34 PT 14.4 Sec. (12.2-14.9) 01/17/20 05:34 INR 1.13 (0.87-1.13) 01/17/20 05:34 APTT 25.2 Sec. (24.2-36.6) 01/15/20 21:01 Heparin Anti-Xa Level 0.55 U.I./ml (0.3-0.7) 01/16/20 09:59 Sodium 138 mmol/L (137-145) 01/17/20 05:34 Potassium 3.6 mmol/L (3.6-5.0) 01/17/20 05:34 Chloride 97.8 mmol/L (98-107) L 01/17/20 05:34 Carbon Dioxide 32 mmol/L (22-30) H D 01/17/20 05:34 Anion Gap 12 mmol/L 01/17/20 05:34 BUN 11 mg/dL (7-17) 01/17/20 05:34 Creatinine 0.7 mg/dL (0.6-1.2) 01/17/20 05:34 Estimated GFR > 60 ml/min 01/17/20 05:34 BUN/Creatinine Ratio 16 % 01/17/20 05:34 Glucose 108 mg/dL (65-100) H 01/17/20 05:34 Calcium 8.8 mg/dL (8.4-10.2) 01/17/20 05:34 Total Bilirubin 0.40 mg/dL (0.1-1.2) 01/15/20 21:01 AST 37 units/L (5-40) 01/15/20 21:01 ALT 24 units/L (7-56) 01/15/20 21:01 Alkaline Phosphatase 62 units/L (35-129) 01/15/20 21:01 Troponin T 0.255 ng/mL (0.00-0.029) H* 01/17/20 05:34 NT-Pro-B Natriuret Pep 1893 pg/mL (0-900) H 01/15/20 21:01 Total Protein 5.8 g/dL (6.3-8.2) L 01/15/20 21:01 Albumin 3.3 g/dL (3.9-5) L 01/15/20 21:01 Albumin/Globulin Ratio 1.3 % 01/15/20 21:01 Triglycerides 81 mg/dL (2-149) 01/15/20 21:01 Cholesterol 106 mg/dL (50-199) 01/15/20 21:01 LDL Cholesterol Direct 60 mg/dL (50-130) 01/15/20 21:01 HDL Cholesterol 35 mg/dL (40-59) L 01/15/20 21:01 Cholesterol/HDL Ratio 3.02 % 01/15/20 21:01 Lipase 38 units/L (13-60) 01/15/20 21:01 - Diagnostic Impressions Diagnostic Impressions: Echocardiogram 01/16/20 03:58 Transthoracic Echocardiogram Indication: SOB BP: 133/79 HR: 105 Conclusions *The left ventricular chamber size is normal. *There is no left ventricular hypertrophy. *The estimated ejection fraction is 40-45%. *The basal inferoseptal, and mid inferoseptal wall segments are akinetic. *The left atrial chamber size is normal. *The right atrium is mildly dilated. *The right ventricle is mild to moderately dilated. Moderate pulmonary hypertension noted. *The right ventricular global systolic function is normal. * A thrombus is visualized in the left ventricle. There is fairly large,slightly mobile mass noted in apical area,c/w thrombus. There is an echogenic density structure in left ventricular measuring 1.95x1.99cm. Findings Left Ventricle: The left ventricular chamber size is normal. There is no left ventricular hypertrophy. The estimated ejection fraction is 40-45%. The basal inferoseptal, and mid inferoseptal wall segments are akinetic. A thrombus is visualized in the left ventricle.There is fairly large,slightly mobile mass noted in apical area,c/w thrombus. Left Atrium: The left atrial chamber size is normal. Right Ventricle: The right ventricle is mild to moderately dilated. The right ventricular global systolic function is normal. Right Atrium: The right atrium is mildly dilated. Aortic Valve: Mild aortic leaflet calcification is visualized. There is no evidence of aortic regurgitation. Mitral Valve: The mitral valve leaflets are mildly thickened. There is mild to moderate mitral regurgitation. Tricuspid Valve: The tricuspid valve leaflets are normal. There is mild tricuspid regurgitation. There is evidence of moderate pulmonary hypertension. Pulmonic Valve: There is no evidence of pulmonic valve thickening. There is no evidence of pulmonic regurgitation. Pericardium: There is no pericardial effusion. Aorta: The aorta appears normal. Venous: The inferior vena cava is not visualized. Contrast: Intravenous contrast was used to enhance endocardial border definition. Measurements Chambers 2D Name Value Normal Range IVSd (2D) 0.97 cm (0.6 - 1.1) LVPWd (2D) 0.92 cm (0.6 - 1.1) LVIDd (2D) 5.71 cm (3.7 - 5.6) LVIDs (2D) 4.41 cm (2 - 3.8) LV FS (2D) 22.78 % - EF Teichholz (2D) 45.16 % - Ao root diameter (2D) 2.71 cm (2 - 3.7) Volumes/Mass Name Value Normal Range LA ESV SP 4CH (A/L) 39.91 ml - LA ESV SP 2CH (A/L) 85.03 ml - LA ESV BP (A/L) 59.07 ml - LA ESV BP (A/L) index 29.83 ml/m2 - LA ESV SP 4CH (MOD) 37.67 ml - LA ESV SP 2CH (MOD) 78.85 ml - LA ESV BP (MOD) 53.69 ml - LA ESV BP (MOD) index 27.12 ml/m2 - Aortic Valve Name Value Normal Range AV Vmax 1.46 m/sec - AV VTI 22.97 cm - AV peak gradient 8.48 mmHg - AV mean gradient 4.53 mmHg - LVOT diameter 1.77 cm - LVOT Vmax 0.69 m/sec - LVOT VTI 12.12 cm - LVOT peak gradient 1.93 mmHg - LVOT mean gradient 1.06 mmHg - SV LVOT 29.95 ml - BETI (continuity Vmax) 1.18 cm2 - BETI (continuity VTI) 1.3 cm2 - Ascending Ao 2.92 cm - Mitral Valve Name Value Normal Range MV PHT 68.81 msec - MR Vmax 4.98 m/sec - MVA (PHT) 3.2 cm2 - Tricuspid Valve Name Value Normal Range TR Vmax 3.17 m/sec - TR peak gradient 40.11 mmHg - RAP 8 mmHg - RVSP 48 mmHg - Pulmonic Valve/Qp:Qs Name Value Normal Range PV Vmax 0.72 m/sec - PV peak gradient 2.09 mmHg - PV acceleration time 182.68 msec - Wallmotion BAS Not Seen BA Not Seen BAL Not Seen ABBY Not Seen BI Not Seen BIS Akinetic MAS Not Seen MA Not Seen MAL Not Seen MIL Not Seen FL Not Seen MIS Akinetic Not Seen AA Not Seen AL Not Seen AI Not Seen APEX Not Seen Cao/IV: Voiding Method External Female Catheter IV Catheter Type [Right Hand] INT / Saline Lock Active Medications - Current Medications Current Medications: Generic Name Dose Route Start Last Admin Trade Name Freq PRN Reason Stop Dose Admin Acetaminophen 650 mg 01/16/20 03:50 01/16/20 21:41 Tylenol PO 650 mg Q4H PRN Administration Pain MILD(1-3)/Fever >100.5/AMAYA Aspirin 325 mg 01/17/20 10:00 Aspirin PO QDAY NESTOR Atorvastatin Calcium 40 mg 01/16/20 22:00 01/16/20 21:42 Lipitor PO 40 mg QHS NESTOR Administration Carvedilol 6.25 mg 01/16/20 22:00 01/16/20 21:41 Coreg PO 6.25 mg BID NESTOR Administration Furosemide 40 mg 01/16/20 06:00 01/17/20 05:16 Lasix IV 40 mg BID@0600,1800 NESTOR Administration Heparin Sodium/Sodium Chloride 25,000 unit in 500 mls @ 20 mls/hr 01/15/20 23: 45 01/17/20 04:35 Heparin/ 0.45% Nacl-25,000 Unit/500 Ml IV 1,000 units/hr TITRATE NESTOR 20 mls/hr Administration Protocol 1,000 UNITS/HR Losartan Potassium 25 mg 01/17/20 10:00 Cozaar PO QDAY NESTOR Magnesium Hydroxide 30 ml 01/16/20 03:50 Milk Of Magnesia PO Q4H PRN Constipation Ondansetron HCl 4 mg 01/16/20 03:50 Zofran IV Q8H PRN Nausea And Vomiting Sodium Chloride 10 ml 01/16/20 10:00 01/16/20 21:42 Sodium Chloride Flush Syringe 10 Ml IV 10 ml BID NESTOR Administration Sodium Chloride 10 ml 01/16/20 03:50 Sodium Chloride Flush Syringe 10 Ml IV PRN PRN LINE FLUSH
[2020-01-17] MEDS: carvediloL 6.25 MG TAB PO SCH ×2 (09:33→21:11)
[2020-01-17] MEDS: LOSARTAN 25 MG TAB PO SCH (09:33)
[2020-01-17] MEDS: ASPIRIN 325 MG TAB PO SCH (09:33)
[2020-01-17] MEDS: ACETAMINOPHEN 325 MG TAB PO PRN ×2 (09:34→19:33)
[2020-01-17] MEDS ORDERED: ASPIRIN EC 325 MG TAB PO SCH (10:00)
--- NOTE | 2020-01-17 12:00 | Progress Note ---
Assessment and Plan tte reviewed - EF 40-45%, basal inferoseptal and mid inferoseptal akinesis, RA mildly dilated, RV mild to mod dilated, mod pulm HTN with RVSP 48mmHg, thrombus visualized in LV - fairly large and slightly mobile in apical area. Cont heparin gtt and will plan for initiation of OAC prior to discharge. Will likely post- pone ischemic evaluation in setting of LV thrombus - will likely plan to pursue as OP. Cont GDMT and IV lasix BID. Add zaroxolyn today for additional diuresis. The patient has been seen in conjunction with Dr. Moore who agrees with the assessment and plan of care. - Patient Problems (1) Acute HFrEF (heart failure with reduced ejection fraction) Current Visit: Yes Status: Acute (2) Cardiomyopathy Current Visit: Yes Status: Acute (3) LV (left ventricular) mural thrombus Current Visit: Yes Status: Chronic (4) Pulmonary edema Current Visit: Yes Status: Acute (5) NSTEMI (non-ST elevated myocardial infarction) Current Visit: Yes Status: Acute Plan to address problem: suspect type II (6) Uncontrolled hypertension Current Visit: Yes Status: Acute (7) Morbid obesity Current Visit: Yes Status: Chronic (8) Noncompliance with medication regimen Current Visit: Yes Status: Chronic (9) RBBB Current Visit: Yes Status: Acute (10) History of congenital heart defect Current Visit: Yes Status: Chronic Plan to address problem: 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 tele reviewed - in SR with 10 beat NSVT noted this AM, pt asymptomatic. Objective Last Vital Signs Temp 97.8 F 01/17/20 07:54 Pulse 97 H 01/17/20 09:33 Resp 20 01/17/20 08:42 BP 124/73 01/17/20 09:33 Pulse Ox 97 01/17/20 07:54 - Physical Examination General: No Apparent Distress HEENT: Positive: PERRL, Normocephaly, Mucus Membranes Moist Neck: Positive: neck supple, trachea midline Cardiac: Positive: Reg Rate and Rhythm, S1/S2 Lungs: Positive: Decreased Breath Sounds Neuro: Positive: Grossly Intact Abdomen: Negative: Tender Skin: Negative: Rash Musculoskeletal: No Pain Extremities: Present: edema (generalized), +2 Edema (BLE) - Labs and Meds Coagulation 01/17/20 Range/Units 05:34 PT 14.4 (12.2-14.9) Sec. INR 1.13 (0.87-1.13) CBC 01/17/20 Range/Units 05:34 WBC 5.3 (4.5-11.0) K/mm3 RBC 5.85 H (3.65-5.03) M/mm3 Hgb 11.2 (10.1-14.3) gm/dl Hct 36.8 (30.3-42.9) % Plt Count 196 (140-440) K/mm3 Lymph # (Auto) 1.2 (1.2-5.4) K/mm3 [place] # (Auto) 0.6 (0.0-0.8) K/mm3 Eos # (Auto) 0.1 (0.0-0.4) K/mm3 Baso # (Auto) 0.0 (0.0-0.1) K/mm3 Comprehensive Metabolic Panel 01/17/20 Range/Units 05:34 Sodium 138 (137-145) mmol/L Potassium 3.6 (3.6-5.0) mmol/L Chloride 97.8 L (98-107) mmol/L Carbon Dioxide 32 H D (22-30) mmol/L BUN 11 (7-17) mg/dL Creatinine 0.7 (0.6-1.2) mg/dL Glucose 108 H (65-100) mg/dL Calcium 8.8 (8.4-10.2) mg/dL - Imaging and Cardiology EKG: report reviewed, image reviewed Echo: report reviewed - Telemetry EKG Rhythm: Sinus Rhythm - EKG Sinus rhythms and dysrhythmias: sinus rhythm AV and intraventricular conduction: right bundle branch block
[2020-01-17] MEDS: metOLazone 2.5 MG TAB PO SCH (17:23)
[2020-01-18] MEDS: ACETAMINOPHEN 325 MG TAB PO PRN ×2 (02:40→15:29)
[2020-01-18] MEDS: FUROSEMIDE 40 MG/4 ML INJ IV SCH ×2 (06:00→17:59)
[2020-01-18 06:27] LABS: Blood Urea Nitrogen 10 mg/dL (7-17); Calcium 8.7 mg/dL (8.4-10.2); Hemolysis Index 0
[2020-01-18 06:35] LABS: BUN/Creatinine Ratio 14
--- NOTE | 2020-01-18 08:40 | Progress Note ---
Assessment and Plan Assessment and plan: (1) New onset of congestive heart failure Current Visit: Yes Status: Acute Plan to address problem: Patient placed on diuretics. Will monitor input and output and also monitor daily weight. Patient will be scheduled for echocardiogram. We will request cardiology evaluation. Left ventricular thrombus -Echo was done and showed ejection fraction of 40 to 45%, basal inferoseptal and mid inferoseptal wall segments are akinetic. -There is a large left ventricular thrombus and patient is on heparin -Cardiology is following the patient (2) Elevated troponin Current Visit: Yes Status: Acute Plan to address problem: We will check serial cardiac enzymes.. Patient started on heparin drip. We will await further evaluation by cardiology. (3) History of hypertension Current Visit: Yes Status: Acute Plan to address problem: We will continue routine home medications once reconciled and monitor vital signs closely. (4) Full code status Current Visit: Yes Status: Acute 01/18/2020; patient is on IV Lasix, metolazone, carvedilol, atorvastatin and losartan. Patient is on heparin drip for left ventricular thrombus. Cardiology recommend ischemic work-up to be postponed as outpatient because of her recent finding of left ventricular thrombus. History Interval history: Patient was seen and evaluated this morning Patient is still complaining shortness of breath but improving from admission condition Hospitalist Physical - Physical exam Narrative exam: Not in cardiopulmonary distress. The patient appeared well nourished and normally developed. Vital signs as documented. Head exam is unremarkable. No scleral icterus . Neck is without jugular venous distension, thyromegaly, or carotid bruits. Lungs significant for rales. Cardiac exam reveals regular rate and Rhythm. Abdominal exam reveals normal bowel sounds, nontender, no organomegaly. Extremities are +2 pedal and pretibial edema. AIRPLANE TESTER: Alert and oriented 3. No focal weakness. - Constitutional Vitals: Temp Pulse Resp BP Pulse Ox 99.6 F 87 18 122/73 94 01/18/20 07:50 01/18/20 07:50 01/18/20 07:50 01/18/20 07:50 01/18/20 07:50 General appearance: Present: no acute distress HEART Score - HEART Score EKG: Non-specific Age: 45-65 Risk factors: 1-2 risk factors Troponin: Troponin T 0.255 ng/mL (0.00-0.029) H* 01/17/20 05:34 Troponin: 1-3x normal limit Results - Labs CBC & Chem 7: 01/17/20 05:34 01/18/20 04:00 Labs: Laboratory Last Values WBC 5.3 K/mm3 (4.5-11.0) 01/17/20 05:34 RBC 5.85 M/mm3 (3.65-5.03) H 01/17/20 05:34 Hgb 11.2 gm/dl (10.1-14.3) 01/17/20 05:34 Hct 36.8 % (30.3-42.9) 01/17/20 05:34 MCV 63 fl (79-97) L 01/17/20 05:34 MCH 19 pg (28-32) L 01/17/20 05:34 MCHC 30 % (30-34) 01/17/20 05:34 RDW 20.4 % (13.2-15.2) H 01/17/20 05:34 Plt Count 196 K/mm3 (140-440) 01/17/20 05:34 Lymph % (Auto) 22.7 % (13.4-35.0) 01/17/20 05:34 [place] % (Auto) 10.5 % (0.0-7.3) H 01/17/20 05:34 Eos % (Auto) 2.2 % (0.0-4.3) 01/17/20 05:34 Baso % (Auto) 0.6 % (0.0-1.8) 01/17/20 05:34 Lymph # (Auto) 1.2 K/mm3 (1.2-5.4) 01/17/20 05:34 [place] # (Auto) 0.6 K/mm3 (0.0-0.8) 01/17/20 05:34 Eos # (Auto) 0.1 K/mm3 (0.0-0.4) 01/17/20 05:34 Baso # (Auto) 0.0 K/mm3 (0.0-0.1) 01/17/20 05:34 Seg Neutrophils % 64.0 % (40.0-70.0) 01/17/20 05:34 Seg Neutrophils # 3.4 K/mm3 (1.8-7.7) 01/17/20 05:34 PT 14.4 Sec. (12.2-14.9) 01/17/20 05:34 INR 1.13 (0.87-1.13) 01/17/20 05:34 APTT 25.2 Sec. (24.2-36.6) 01/15/20 21:01 Heparin Anti-Xa Level 0.40 U.I./ml (0.3-0.7) 01/17/20 09:19 Sodium 140 mmol/L (137-145) 01/18/20 04:00 Potassium 3.5 mmol/L (3.6-5.0) L 01/18/20 04:00 Chloride 97.2 mmol/L (98-107) L 01/18/20 04:00 Carbon Dioxide 39 mmol/L (22-30) H D 01/18/20 04:00 Anion Gap 7 mmol/L 01/18/20 04:00 BUN 10 mg/dL (7-17) 01/18/20 04:00 Creatinine 0.7 mg/dL (0.6-1.2) 01/18/20 04:00 Estimated GFR > 60 ml/min 01/18/20 04:00 BUN/Creatinine Ratio 14 % 01/18/20 04:00 Glucose 109 mg/dL (65-100) H 01/18/20 04:00 Calcium 8.7 mg/dL (8.4-10.2) 01/18/20 04:00 Total Bilirubin 0.40 mg/dL (0.1-1.2) 01/15/20 21:01 AST 37 units/L (5-40) 01/15/20 21:01 ALT 24 units/L (7-56) 01/15/20 21:01 Alkaline Phosphatase 62 units/L (35-129) 01/15/20 21:01 Troponin T 0.255 ng/mL (0.00-0.029) H* 01/17/20 05:34 NT-Pro-B Natriuret Pep 1893 pg/mL (0-900) H 01/15/20 21:01 Total Protein 5.8 g/dL (6.3-8.2) L 01/15/20 21:01 Albumin 3.3 g/dL (3.9-5) L 01/15/20 21:01 Albumin/Globulin Ratio 1.3 % 01/15/20 21:01 Triglycerides 81 mg/dL (2-149) 01/15/20 21:01 Cholesterol 106 mg/dL (50-199) 01/15/20 21:01 LDL Cholesterol Direct 60 mg/dL (50-130) 01/15/20 21:01 HDL Cholesterol 35 mg/dL (40-59) L 01/15/20 21:01 Cholesterol/HDL Ratio 3.02 % 01/15/20 21:01 Lipase 38 units/L (13-60) 01/15/20 21:01 - Diagnostic Impressions Diagnostic Impressions: Echocardiogram 01/16/20 03:58 Transthoracic Echocardiogram Indication: SOB BP: 133/79 HR: 105 Conclusions *The left ventricular chamber size is normal. *There is no left ventricular hypertrophy. *The estimated ejection fraction is 40-45%. *The basal inferoseptal, and mid inferoseptal wall segments are akinetic. *The left atrial chamber size is normal. *The right atrium is mildly dilated. *The right ventricle is mild to moderately dilated. Moderate pulmonary hypertension noted. *The right ventricular global systolic function is normal. * A thrombus is visualized in the left ventricle. There is fairly large,slightly mobile mass noted in apical area,c/w thrombus. There is an echogenic density structure in left ventricular measuring 1.95x1.99cm. Findings Left Ventricle: The left ventricular chamber size is normal. There is no left ventricular hypertrophy. The estimated ejection fraction is 40-45%. The basal inferoseptal, and mid inferoseptal wall segments are akinetic. A thrombus is visualized in the left ventricle.There is fairly large,slightly mobile mass noted in apical area,c/w thrombus. Left Atrium: The left atrial chamber size is normal. Right Ventricle: The right ventricle is mild to moderately dilated. The right ventricular global systolic function is normal. Right Atrium: The right atrium is mildly dilated. Aortic Valve: Mild aortic leaflet calcification is visualized. There is no evidence of aortic regurgitation. Mitral Valve: The mitral valve leaflets are mildly thickened. There is mild to moderate mitral regurgitation. Tricuspid Valve: The tricuspid valve leaflets are normal. There is mild tricuspid regurgitation. There is evidence of moderate pulmonary hypertension. Pulmonic Valve: There is no evidence of pulmonic valve thickening. There is no evidence of pulmonic regurgitation. Pericardium: There is no pericardial effusion. Aorta: The aorta appears normal. Venous: The inferior vena cava is not visualized. Contrast: Intravenous contrast was used to enhance endocardial border definition. Measurements Chambers 2D Name Value Normal Range IVSd (2D) 0.97 cm (0.6 - 1.1) LVPWd (2D) 0.92 cm (0.6 - 1.1) LVIDd (2D) 5.71 cm (3.7 - 5.6) LVIDs (2D) 4.41 cm (2 - 3.8) LV FS (2D) 22.78 % - EF Teichholz (2D) 45.16 % - Ao root diameter (2D) 2.71 cm (2 - 3.7) Volumes/Mass Name Value Normal Range LA ESV SP 4CH (A/L) 39.91 ml - LA ESV SP 2CH (A/L) 85.03 ml - LA ESV BP (A/L) 59.07 ml - LA ESV BP (A/L) index 29.83 ml/m2 - LA ESV SP 4CH (MOD) 37.67 ml - LA ESV SP 2CH (MOD) 78.85 ml - LA ESV BP (MOD) 53.69 ml - LA ESV BP (MOD) index 27.12 ml/m2 - Aortic Valve Name Value Normal Range AV Vmax 1.46 m/sec - AV VTI 22.97 cm - AV peak gradient 8.48 mmHg - AV mean gradient 4.53 mmHg - LVOT diameter 1.77 cm - LVOT Vmax 0.69 m/sec - LVOT VTI 12.12 cm - LVOT peak gradient 1.93 mmHg - LVOT mean gradient 1.06 mmHg - SV LVOT 29.95 ml - BETI (continuity Vmax) 1.18 cm2 - BETI (continuity VTI) 1.3 cm2 - Ascending Ao 2.92 cm - Mitral Valve Name Value Normal Range MV PHT 68.81 msec - MR Vmax 4.98 m/sec - MVA (PHT) 3.2 cm2 - Tricuspid Valve Name Value Normal Range TR Vmax 3.17 m/sec - TR peak gradient 40.11 mmHg - RAP 8 mmHg - RVSP 48 mmHg - Pulmonic Valve/Qp:Qs Name Value Normal Range PV Vmax 0.72 m/sec - PV peak gradient 2.09 mmHg - PV acceleration time 182.68 msec - [place] BAS Not Seen BA Not Seen BAL Not Seen ABBY Not Seen BI Not Seen BIS Akinetic MAS Not Seen MA Not Seen MAL Not Seen MIL Not Seen OR Not Seen MIS Akinetic Not Seen AA Not Seen AL Not Seen AI Not Seen APEX Not Seen Cao/IV: Voiding Method External Female Catheter IV Catheter Type [Right Hand] INT / Saline Lock Active Medications - Current Medications Current Medications: Generic Name Dose Route Start Last Admin Trade Name Freq PRN Reason Stop Dose Admin Acetaminophen 650 mg 01/16/20 03:50 01/18/20 02:40 Tylenol PO 650 mg Q4H PRN Administration Pain MILD(1-3)/Fever >100.5/AMAYA Aspirin 325 mg 01/17/20 10:00 01/17/20 09:33 Aspirin PO 325 mg QDAY NESTOR Administration Atorvastatin Calcium 40 mg 01/16/20 22:00 01/17/20 21:10 Lipitor PO 40 mg QHS NESTOR Administration Carvedilol 6.25 mg 01/16/20 22:00 01/17/20 21:11 Coreg PO 6.25 mg BID NESTOR Administration Furosemide 40 mg 01/16/20 06:00 01/18/20 06:00 Lasix IV 40 mg BID@0600,1800 NESTOR Administration Heparin Sodium/Sodium Chloride 25,000 unit in 500 mls @ 20 mls/hr 01/15/20 23:45 01/17/20 11:05 Heparin/ 0.45% Nacl-25,000 Unit/500 Ml IV 1,000 units/hr TITRATE NESTOR 20 mls/hr Administration Protocol 1,000 UNITS/HR Losartan Potassium 25 mg 01/17/20 10:00 01/17/20 09:33 Cozaar PO 25 mg QDAY NESTOR Administration Magnesium Hydroxide 30 ml 01/16/20 03:50 01/18/20 02:42 Milk Of Magnesia PO 30 ml Q4H PRN Administration Constipation Metolazone 2.5 mg 01/17/20 17:30 01/17/20 17:23 Zaroxolyn PO 2.5 mg QDAY NESTOR Administration Ondansetron HCl 4 mg 01/16/20 03:50 Zofran IV Q8H PRN Nausea And Vomiting Sodium Chloride 10 ml 01/16/20 10:00 01/17/20 21:12 Sodium Chloride Flush Syringe 10 Ml IV 10 ml BID NESTOR Administration Sodium Chloride 10 ml 01/16/20 03:50 01/18/20 06:00 Sodium Chloride Flush Syringe 10 Ml IV 10 ml PRN PRN Administration LINE FLUSH
[2020-01-18] MEDS: HEPARIN/ 0.45% NACL DRIP 25,000 UNIT/500 ML BAG IV SCH (08:58)
[2020-01-18] MEDS ORDERED: POTASSIUM CHLORIDE ER 20 MEQ TAB PO SCH (09:00)
[2020-01-18] MEDS: LOSARTAN 25 MG TAB PO SCH (09:05)
[2020-01-18] MEDS: carvediloL 6.25 MG TAB PO SCH ×2 (09:05→21:26)
[2020-01-18] MEDS: metOLazone 2.5 MG TAB PO SCH ×2 (09:05→17:58)
[2020-01-18] MEDS: ASPIRIN 325 MG TAB PO SCH (09:05)
--- NOTE | 2020-01-18 12:07 | Progress Note ---
Assessment and Plan Cont heparin gtt and initiate coumadin with tx INR 2-3 today. Will defer ischemic evaluation at this time in setting of LV thrombus and plan to pursue as OP. Cont GDMT, IV lasix BID, zaroxolyn. Encourage increased activity/ambulation today. The patient has been seen in conjunction with Dr. Moore who agrees with the assessment and plan of care. - Patient Problems (1) Acute HFrEF (heart failure with reduced ejection fraction) Current Visit: Yes Status: Acute (2) Cardiomyopathy Current Visit: Yes Status: Acute (3) LV (left ventricular) mural thrombus Current Visit: Yes Status: Chronic (4) Pulmonary edema Current Visit: Yes Status: Acute (5) NSTEMI (non-ST elevated myocardial infarction) Current Visit: Yes Status: Acute Plan to address problem: suspect type II (6) Uncontrolled hypertension Current Visit: Yes Status: Acute (7) Morbid obesity Current Visit: Yes Status: Chronic (8) Noncompliance with medication regimen Current Visit: Yes Status: Chronic (9) RBBB Current Visit: Yes Status: Acute (10) History of congenital heart defect Current Visit: Yes Status: Chronic Plan to address problem: 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 tele reviewed - in SR with infrequent 2-3 beat runs NSVT overnight, pt asymptomatic. Objective Last Vital Signs Temp 99.6 F 01/18/20 07:50 Pulse 87 01/18/20 07:50 Resp 18 01/18/20 07:50 BP 122/73 01/18/20 07:50 Pulse Ox 94 01/18/20 07:50 - Physical Examination General: No Apparent Distress HEENT: Positive: PERRL, Normocephaly, Mucus Membranes Moist Neck: Positive: neck supple, trachea midline Cardiac: Positive: Reg Rate and Rhythm, S1/S2 Lungs: Positive: Decreased Breath Sounds Neuro: Positive: Grossly Intact Abdomen: Negative: Tender Skin: Negative: Rash Musculoskeletal: No Pain Extremities: Present: edema (generalized), +2 Edema (BLE) - Labs and Meds Comprehensive Metabolic Panel 01/18/20 Range/Units 04:00 Sodium 140 (137-145) mmol/L Potassium 3.5 L (3.6-5.0) mmol/L Chloride 97.2 L (98-107) mmol/L Carbon Dioxide 39 H D (22-30) mmol/L BUN 10 (7-17) mg/dL Creatinine 0.7 (0.6-1.2) mg/dL Glucose 109 H (65-100) mg/dL Calcium 8.7 (8.4-10.2) mg/dL - Imaging and Cardiology EKG: report reviewed, image reviewed Echo: report reviewed (EF 40-45%, basal inferoseptal and mid inferoseptal akinesis, RA mildly dilated, RV mild to mod dilated, mod pulm HTN with RVSP 48mmHg, thrombus visualized in LV - fairly large and slightly mobile in apical area.) - Telemetry EKG Rhythm: Sinus Rhythm - EKG Sinus rhythms and dysrhythmias: sinus rhythm AV and intraventricular conduction: right bundle branch block
[2020-01-18] MEDS ORDERED: HEPARIN 10,000 UNITS/10 ML VIAL IV ONE (13:02)
[2020-01-18] MEDS: WARFARIN 10 MG TAB PO SCH (17:59)
[2020-01-18] MEDS: oxyCODONE /ACETAMINOPHEN 5-325MG TAB PO PRN (18:37)
[2020-01-19] MEDS: HEPARIN/ 0.45% NACL DRIP 25,000 UNIT/500 ML BAG IV SCH ×2 (03:02→21:38)
[2020-01-19] MEDS: FUROSEMIDE 40 MG/4 ML INJ IV SCH ×2 (06:11→18:46)
[2020-01-19] MEDS: oxyCODONE /ACETAMINOPHEN 5-325MG TAB PO PRN (06:39)
[2020-01-19] MEDS ORDERED: POTASSIUM CHLORIDE ER 20 MEQ TAB PO ONE (09:26)
[2020-01-19 09:29] LABS: Hematocrit 36.6 % (30.3-42.9); Hemoglobin 11.2 gm/dl (10.1-14.3)
--- NOTE | 2020-01-19 09:30 | Progress Note ---
Assessment and Plan Assessment and plan: (1) New onset of congestive heart failure Current Visit: Yes Status: Acute Plan to address problem: Patient placed on diuretics. Will monitor input and output and also monitor daily weight. Patient will be scheduled for echocardiogram. We will request cardiology evaluation. Left ventricular thrombus -Echo was done and showed ejection fraction of 40 to 45%, basal inferoseptal and mid inferoseptal wall segments are akinetic. -There is a large left ventricular thrombus and patient is on heparin -Cardiology is following the patient (2) Elevated troponin Current Visit: Yes Status: Acute Plan to address problem: We will check serial cardiac enzymes.. Patient started on heparin drip. We will await further evaluation by cardiology. (3) History of hypertension Current Visit: Yes Status: Acute Plan to address problem: We will continue routine home medications once reconciled and monitor vital signs closely. (4) Full code status Current Visit: Yes Status: Acute 01/18/2020; patient is on IV Lasix, metolazone, carvedilol, atorvastatin and losartan. Patient is on heparin drip for left ventricular thrombus. Cardiology recommend ischemic work-up to be postponed as outpatient because of her recent finding of left ventricular thrombus. 01/19/2020; continue with IV, Lasix metolazone and other guideline medical th erapy for CHF. Continue with IV heparin for left ventricular thrombus. Cardiology is following the patient. We will do PT OT. History Interval history: Patient was seen and evaluated this morning Patient is still complaining shortness of breath but improving from admission condition Hospitalist Physical - Physical exam Narrative exam: Not in cardiopulmonary distress. The patient appeared well nourished and normally developed. Vital signs as documented. Head exam is unremarkable. No scleral icterus . Neck is without jugular venous distension, thyromegaly, or carotid bruits. Lungs significant for rales. Cardiac exam reveals regular rate and Rhythm. Abdominal exam reveals normal bowel sounds, nontender, no organomegaly. Extremities are +2 pedal and pretibial edema. 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 No focal weakness. - Constitutional Vitals: Temp Pulse Resp BP Pulse Ox 99.6 F 99 H 18 119/77 94 01/19/20 08:19 01/19/20 08:19 01/19/20 08:19 01/19/20 08:19 01/19/20 08:19 General appearance: Present: no acute distress HEART Score - HEART Score EKG: Non-specific Age: 45-65 Risk factors: 1-2 risk factors Troponin: Troponin T 0.255 ng/mL (0.00-0.029) H* 01/17/20 05:34 Troponin: 1-3x normal limit Results - Labs CBC & Chem 7: 01/17/20 05:34 01/18/20 04:00 Labs: Laboratory Last Values WBC 5.3 K/mm3 (4.5-11.0) 01/17/20 05:34 RBC 5.85 M/mm3 (3.65-5.03) H 01/17/20 05:34 Hgb 11.2 gm/dl (10.1-14.3) 01/17/20 05:34 Hct 36.8 % (30.3-42.9) 01/17/20 05:34 MCV 63 fl (79-97) L 01/17/20 05:34 MCH 19 pg (28-32) L 01/17/20 05:34 MCHC 30 % (30-34) 01/17/20 05:34 RDW 20.4 % (13.2-15.2) H 01/17/20 05:34 Plt Count 196 K/mm3 (140-440) 01/17/20 05:34 Lymph % (Auto) 22.7 % (13.4-35.0) 01/17/20 05:34 Cameron % (Auto) 10.5 % (0.0-7.3) H 01/17/20 05:34 Eos % (Auto) 2.2 % (0.0-4.3) 01/17/20 05:34 Baso % (Auto) 0.6 % (0.0-1.8) 01/17/20 05:34 Lymph # (Auto) 1.2 K/mm3 (1.2-5.4) 01/17/20 05:34 Cameron # (Auto) 0.6 K/mm3 (0.0-0.8) 01/17/20 05:34 Eos # (Auto) 0.1 K/mm3 (0.0-0.4) 01/17/20 05:34 Baso # (Auto) 0.0 K/mm3 (0.0-0.1) 01/17/20 05:34 Seg Neutrophils % 64.0 % (40.0-70.0) 01/17/20 05:34 Seg Neutrophils # 3.4 K/mm3 (1.8-7.7) 01/17/20 05:34 PT 14.4 Sec. (12.2-14.9) 01/17/20 05:34 INR 1.13 (0.87-1.13) 01/17/20 05:34 APTT 25.2 Sec. (24.2-36.6) 01/15/20 21:01 Heparin Anti-Xa Level 0.74 U.I./ml (0.3-0.7) H 01/18/20 18:56 Sodium 140 mmol/L (137-145) 01/18/20 04:00 Potassium 3.5 mmol/L (3.6-5.0) L 01/18/20 04:00 Chloride 97.2 mmol/L (98-107) L 01/18/20 04:00 Carbon Dioxide 39 mmol/L (22-30) H D 01/18/20 04:00 Anion Gap 7 mmol/L 01/18/20 04:00 BUN 10 mg/dL (7-17) 01/18/20 04:00 Creatinine 0.7 mg/dL (0.6-1.2) 01/18/20 04:00 Estimated GFR > 60 ml/min 01/18/20 04:00 BUN/Creatinine Ratio 14 % 01/18/20 04:00 Glucose 109 mg/dL (65-100) H 01/18/20 04:00 Calcium 8.7 mg/dL (8.4-10.2) 01/18/20 04:00 Total Bilirubin 0.40 mg/dL (0.1-1.2) 01/15/20 21:01 AST 37 units/L (5-40) 01/15/20 21:01 ALT 24 units/L (7-56) 01/15/20 21:01 Alkaline Phosphatase 62 units/L (35-129) 01/15/20 21:01 Troponin T 0.255 ng/mL (0.00-0.029) H* 01/17/20 05:34 NT-Pro-B Natriuret Pep 1893 pg/mL (0-900) H 01/15/20 21:01 Total Protein 5.8 g/dL (6.3-8.2) L 01/15/20 21:01 Albumin 3.3 g/dL (3.9-5) L 01/15/20 21:01 Albumin/Globulin Ratio 1.3 % 01/15/20 21:01 Triglycerides 81 mg/dL (2-149) 01/15/20 21:01 Cholesterol 106 mg/dL (50-199) 01/15/20 21:01 LDL Cholesterol Direct 60 mg/dL (50-130) 01/15/20 21:01 HDL Cholesterol 35 mg/dL (40-59) L 01/15/20 21:01 Cholesterol/HDL Ratio 3.02 % 01/15/20 21:01 Lipase 38 units/L (13-60) 01/15/20 21:01 - Diagnostic Impressions Diagnostic Impressions: Echocardiogram 01/16/20 03:58 Transthoracic Echocardiogram Indication: SOB BP: 133/79 HR: 105 Conclusions *The left ventricular chamber size is normal. *There is no left ventricular hypertrophy. *The estimated ejection fraction is 40-45%. *The basal inferoseptal, and mid inferoseptal wall segments are akinetic. *The left atrial chamber size is normal. *The right atrium is mildly dilated. *The right ventricle is mild to moderately dilated. Moderate pulmonary hypertension noted. *The right ventricular global systolic function is normal. * A thrombus is visualized in the left ventricle. There is fairly large,slightly mobile mass noted in apical area,c/w thrombus. There is an echogenic density structure in left ventricular measuring 1.95x1.99cm. Findings Left Ventricle: The left ventricular chamber size is normal. There is no left ventricular hypertrophy. The estimated ejection fraction is 40-45%. The basal inferoseptal, and mid inferoseptal wall segments are akinetic. A thrombus is visualized in the left ventricle.There is fairly large,slightly mobile mass noted in apical area,c/w thrombus. Left Atrium: The left atrial chamber size is normal. Right Ventricle: The right ventricle is mild to moderately dilated. The right ventricular global systolic function is normal. Right Atrium: The right atrium is mildly dilated. Aortic Valve: Mild aortic leaflet calcification is visualized. There is no evidence of aortic regurgitation. Mitral Valve: The mitral valve leaflets are mildly thickened. There is mild to moderate mitral regurgitation. Tricuspid Valve: The tricuspid valve leaflets are normal. There is mild tricuspid regurgitation. There is evidence of moderate pulmonary hypertension. Pulmonic Valve: There is no evidence of pulmonic valve thickening. There is no evidence of pulmonic regurgitation. Pericardium: There is no pericardial effusion. Aorta: The aorta appears normal. Venous: The inferior vena cava is not visualized. Contrast: Intravenous contrast was used to enhance endocardial border definition. Measurements Chambers 2D Name Value Normal Range IVSd (2D) 0.97 cm (0.6 - 1.1) LVPWd (2D) 0.92 cm (0.6 - 1.1) LVIDd (2D) 5.71 cm (3.7 - 5.6) LVIDs (2D) 4.41 cm (2 - 3.8) LV FS (2D) 22.78 % - EF Teichholz (2D) 45.16 % - Ao root diameter (2D) 2.71 cm (2 - 3.7) Volumes/Mass Name Value Normal Range LA ESV SP 4CH (A/L) 39.91 ml - LA ESV SP 2CH (A/L) 85.03 ml - LA ESV BP (A/L) 59.07 ml - LA ESV BP (A/L) index 29.83 ml/m2 - LA ESV SP 4CH (MOD) 37.67 ml - LA ESV SP 2CH (MOD) 78.85 ml - LA ESV BP (MOD) 53.69 ml - LA ESV BP (MOD) index 27.12 ml/m2 - Aortic Valve Name Value Normal Range AV Vmax 1.46 m/sec - AV VTI 22.97 cm - AV peak gradient 8.48 mmHg - AV mean gradient 4.53 mmHg - LVOT diameter 1.77 cm - LVOT Vmax 0.69 m/sec - LVOT VTI 12.12 cm - LVOT peak gradient 1.93 mmHg - LVOT mean gradient 1.06 mmHg - SV LVOT 29.95 ml - BETI (continuity Vmax) 1.18 cm2 - BETI (continuity VTI) 1.3 cm2 - Ascending Ao 2.92 cm - Mitral Valve Name Value Normal Range MV PHT 68.81 msec - MR Vmax 4.98 m/sec - MVA (PHT) 3.2 cm2 - Tricuspid Valve Name Value Normal Range TR Vmax 3.17 m/sec - TR peak gradient 40.11 mmHg - RAP 8 mmHg - RVSP 48 mmHg - Pulmonic Valve/Qp:Qs Name Value Normal Range PV Vmax 0.72 m/sec - PV peak gradient 2.09 mmHg - PV acceleration time 182.68 msec - Wallmotion BAS Not Seen BA Not Seen BAL Not Seen ABBY Not Seen BI Not Seen BIS Akinetic MAS Not Seen MA Not Seen MAL Not Seen MIL Not Seen NJ Not Seen MIS Akinetic Not Seen AA Not Seen AL Not Seen AI Not Seen APEX Not Seen Cao/IV: Voiding Method External Female Catheter IV Catheter Type [Right Hand] INT / Saline Lock Active Medications - Current Medications Current Medications: Generic Name Dose Route Start Last Admin Trade Name Freq PRN Reason Stop Dose Admin Acetaminophen 650 mg 01/16/20 03:50 01/18/20 15:29 Tylenol PO 650 mg Q4H PRN Administration Pain MILD(1-3)/Fever >100.5/AMAYA Aspirin 81 mg 01/19/20 10:00 Aspirin 81 Mg Tab Chew PO QDAY NESTOR Atorvastatin Calcium 40 mg 01/16/20 22:00 01/18/20 21:25 Lipitor PO 40 mg QHS NESTOR Administration Carvedilol 6.25 mg 01/16/20 22:00 01/18/20 21:26 Coreg PO 6.25 mg BID NESTOR Administration Furosemide 40 mg 01/16/20 06:00 01/19/20 06:11 Lasix IV 40 mg BID@0600,1800 NESTOR Administration Heparin Sodium/Sodium Chloride 25,000 unit in 500 mls @ 20 mls/hr 01/15/20 23:45 01/19/20 03:15 Heparin/ 0.45% Nacl-25,000 Unit/500 Ml IV 1,150 units/hr TITRATE NESTOR 23 mls/hr Titration Protocol 1,000 UNITS/HR Losartan Potassium 25 mg 01/17/20 10:00 01/18/20 09:05 Cozaar PO 25 mg QDAY NESTOR Administration Magnesium Hydroxide 30 ml 01/16/20 03:50 01/18/20 02:42 Milk Of Magnesia PO 30 ml Q4H PRN Administration Constipation Metolazone 5 mg 01/18/20 13:05 01/18/20 17:58 Metolazone 2.5 Mg Tab PO 5 mg QDAY NESTOR Administration Ondansetron HCl 4 mg 01/16/20 03:50 Zofran IV Q8H PRN Nausea And Vomiting Oxycodone/Acetaminophen 1 tab 01/18/20 18:25 01/19/20 06:39 Oxycodone /Acetaminophen 5-325mg Tab PO 1 tab Q6H PRN Administration Pain, Moderate (4-6) Sodium Chloride 10 ml 01/16/20 10:00 01/18/20 21:26 Sodium Chloride Flush Syringe 10 Ml IV 10 ml BID NESTOR Administration Sodium Chloride 10 ml 01/16/20 03:50 01/18/20 06:00 Sodium Chloride Flush Syringe 10 Ml IV 10 ml PRN PRN Administration LINE FLUSH Warfarin Sodium 10 mg 01/18/20 17:00 01/18/20 17:59 Warfarin 10 Mg Tab PO 10 mg DAILY@1700 NESTOR Administration Nutrition/Malnutrition Assess - Dietary Evaluation Nutrition/Malnutrition Findings: Nutrition Notes Start: 01/18/20 13:25 Freq: Status: Active Protocol: Document 01/18/20 13:25 EN (Rec: 01/18/20 13:34 EN [email or web address]) Co-Sign 01/18/20 13:25 LM Nutrition Notes Need for Assessment generated from: MD Order,Education Initial or Follow up Brief Note Current Diagnosis Hypertension,Heart Failure Other Pertinent Diagnosis NSTEMI, PE, NSVT, cardiomyopathy Current Diet Cardiac Subjective/Other Information MD consult for CHF diet and fluid restriction education. Pt reports eating well with a good appetite both [employer] and during admission. Pt denies N/ V/D. Pt accepted diet education for CHF and fluid restriction. Pt has no further questions. #1 Nutrition Diagnosis Food and nutrition-related knowledge deficit Etiology No previous education on CHF diet and fluid restriction As Evidenced by Signs and Symptoms Pt verbalized desire for education and asked questions Nutrition Intervention Teaching Recipient Patient Learning Readiness Good Teaching Methods Discussion,Handout Response to Teaching Verbalize understanding Education Handouts Provided CHF and Fluid restriction handouts Barriers to Learning No Barriers RD phone number provided Yes Patient aware of follow up options Yes Anticipated Discharge Needs: Cardiac diet with fluid restriction Revisit per MD consult or patient Sign Off request:
[2020-01-19 09:31] LABS: INR 1.21 (0.87-1.13)
[2020-01-19] MEDS: ASPIRIN 81 MG TAB CHEW PO SCH (09:41)
[2020-01-19] MEDS: carvediloL 6.25 MG TAB PO SCH ×2 (09:41→21:36)
[2020-01-19] MEDS: LOSARTAN 25 MG TAB PO SCH (09:41)
[2020-01-19] MEDS: metOLazone 2.5 MG TAB PO SCH (09:42)
--- NOTE | 2020-01-19 10:59 | Progress Note ---
Assessment and Plan Cont heparin gtt and coumadin with tx INR 2-3. Will defer ischemic evaluation at this time in setting of LV thrombus and plan to pursue as OP. Cont GDMT, IV lasix BID, zaroxolyn. Pt is net neg 4.3L although suspect she has diuresed more than reported based on clinical appearance. Encourage increased activity/ambulation - PT has been consulted. The patient has been seen in conjunction with Dr. Moore who agrees with the assessment and plan of care. - Patient Problems (1) Acute HFrEF (heart failure with reduced ejection fraction) Current Visit: Yes Status: Acute (2) Cardiomyopathy Current Visit: Yes Status: Acute (3) LV (left ventricular) mural thrombus Current Visit: Yes Status: Chronic (4) Pulmonary edema Current Visit: Yes Status: Acute (5) NSTEMI (non-ST elevated myocardial infarction) Current Visit: Yes Status: Acute (6) Uncontrolled hypertension Current Visit: Yes Status: Acute (7) Morbid obesity Current Visit: Yes Status: Chronic (8) Noncompliance with medication regimen Current Visit: Yes Status: Chronic (9) RBBB Current Visit: Yes Status: Acute (10) History of congenital heart defect Current Visit: Yes Status: Chronic (11) NSVT (nonsustained ventricular tachycardia) Current Visit: Yes Status: Acute Subjective Date of service: 01/19/20 Principal diagnosis: HF Interval history: pt resting in bed, BLE edema and SOB continue to improve. tele reviewed - in SR with infrequent 7 beat run NSVT noted around 2AM, pt asymptomatic. Objective Last Vital Signs Temp 99.6 F 01/19/20 08:19 Pulse 99 H 01/19/20 08:19 Resp 18 01/19/20 08:19 BP 119/77 01/19/20 08:19 Pulse Ox 94 01/19/20 08:19 - Physical Examination General: No Apparent Distress HEENT: Positive: PERRL, Normocephaly, Mucus Membranes Moist Neck: Positive: neck supple, trachea midline Cardiac: Positive: Reg Rate and Rhythm, S1/S2 Lungs: Positive: Decreased Breath Sounds Neuro: Positive: Grossly Intact Abdomen: Negative: Tender Skin: Negative: Rash Musculoskeletal: No Pain Extremities: Present: edema (generalized), +2 Edema (BLE) - Labs and Meds Coagulation 01/19/20 Range/Units 09:03 PT 15.1 H (12.2-14.9) Sec. INR 1.21 H (0.87-1.13) CBC 01/19/20 Range/Units 09:03 Hgb 11.2 (10.1-14.3) gm/dl Hct 36.6 (30.3-42.9) % Plt Count 177 (140-440) K/mm3 - Imaging and Cardiology EKG: report reviewed, image reviewed Echo: report reviewed (EF 40-45%, basal inferoseptal and mid inferoseptal akinesis, RA mildly dilated, RV mild to mod dilated, mod pulm HTN with RVSP 48mmHg, thrombus visualized in LV - fairly large and slightly mobile in apical area.) - Telemetry EKG Rhythm: Sinus Rhythm - EKG Sinus rhythms and dysrhythmias: sinus rhythm AV and intraventricular conduction: right bundle branch block
[2020-01-19 11:32] LABS: Calcium 9.3 mg/dL (8.4-10.2); Hemolysis Index 14
[2020-01-19 11:43] LABS: BUN/Creatinine Ratio 10; Blood Urea Nitrogen 8 mg/dL (7-17)
[2020-01-19] MEDS: WARFARIN 10 MG TAB PO SCH (18:45)
[2020-01-20] MEDS: FUROSEMIDE 40 MG/4 ML INJ IV SCH (07:44)
[2020-01-20 08:32] LABS: BUN/Creatinine Ratio 10; Blood Urea Nitrogen 8 mg/dL (7-17); Calcium 9.3 mg/dL (8.4-10.2); Hemolysis Index 4
[2020-01-20 08:35] LABS: INR 1.41 (0.87-1.13)
--- NOTE | 2020-01-20 08:40 | Progress Note ---
Assessment and Plan Assessment and plan: (1) New onset of congestive heart failure Current Visit: Yes Status: Acute Plan to address problem: Patient placed on diuretics. Will monitor input and output and also monitor daily weight. Patient will be scheduled for echocardiogram. We will request cardiology evaluation. Left ventricular thrombus -Echo was done and showed ejection fraction of 40 to 45%, basal inferoseptal and mid inferoseptal wall segments are akinetic. -There is a large left ventricular thrombus and patient is on heparin -Cardiology is following the patient (2) Elevated troponin Current Visit: Yes Status: Acute Plan to address problem: We will check serial cardiac enzymes.. Patient started on heparin drip. We will await further evaluation by cardiology. (3) History of hypertension Current Visit: Yes Status: Acute Plan to address problem: We will continue routine home medications once reconciled and monitor vital signs closely. (4) Full code status Current Visit: Yes Status: Acute 01/18/2020; patient is on IV Lasix, metolazone, carvedilol, atorvastatin and losartan. Patient is on heparin drip for left ventricular thrombus. Cardiology recommend ischemic work-up to be postponed as outpatient because of her recent finding of left ventricular thrombus. 01/19/2020; continue with IV, Lasix metolazone and other guideline medical th erapy for CHF. Continue with IV heparin for left ventricular thrombus. Cardiology is following the patient. We will do PT OT. 01/20/2020; continue diuresis with IV Lasix and metolazone, continue guideline medical therapy for CHF.. Continue with IV heparin and Coumadin for left ventricular thrombus. INR this morning is 1.4. Continue to monitor. Encourage ambulation. PT evaluated and no need. History Interval history: Patient was seen and evaluated this morning Patient's shortness of breath resolved, patient is off oxygen Hospitalist Physical - Physical exam Narrative exam: Not in cardiopulmonary distress. The patient appeared well nourished and normally developed. Vital signs as documented. Head exam is unremarkable. No scleral icterus . Neck is without jugular venous distension, thyromegaly, or carotid bruits. Lungs significant for rales. Cardiac exam reveals regular rate and Rhythm. Abdominal exam reveals normal bowel sounds, nontender, no organomegaly. Extremities are +2 pedal and pretibial edema. 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 No focal weakness. - Constitutional Vitals: Temp Pulse Resp BP Pulse Ox 98 F 94 H 18 115/69 93 01/20/20 06:09 01/20/20 06:09 01/20/20 06:09 01/20/20 06:09 01/19/20 22:59 General appearance: Present: no acute distress HEART Score - HEART Score EKG: Non-specific Age: 45-65 Risk factors: 1-2 risk factors Troponin: Troponin T 0.255 ng/mL (0.00-0.029) H* 01/17/20 05:34 Troponin: 1-3x normal limit Results - Labs CBC & Chem 7: 01/19/20 09:03 01/20/20 07:42 Labs: Laboratory Last Values WBC 5.3 K/mm3 (4.5-11.0) 01/17/20 05:34 RBC 5.85 M/mm3 (3.65-5.03) H 01/17/20 05:34 Hgb 11.2 gm/dl (10.1-14.3) 01/19/20 09:03 Hct 36.6 % (30.3-42.9) 01/19/20 09:03 MCV 63 fl (79-97) L 01/17/20 05:34 MCH 19 pg (28-32) L 01/17/20 05:34 MCHC 30 % (30-34) 01/17/20 05:34 RDW 20.4 % (13.2-15.2) H 01/17/20 05:34 Plt Count 177 K/mm3 (140-440) 01/19/20 09:03 Lymph % (Auto) 22.7 % (13.4-35.0) 01/17/20 05:34 [place] % (Auto) 10.5 % (0.0-7.3) H 01/17/20 05:34 Eos % (Auto) 2.2 % (0.0-4.3) 01/17/20 05:34 Baso % (Auto) 0.6 % (0.0-1.8) 01/17/20 05:34 Lymph # (Auto) 1.2 K/mm3 (1.2-5.4) 01/17/20 05:34 [place] # (Auto) 0.6 K/mm3 (0.0-0.8) 01/17/20 05:34 Eos # (Auto) 0.1 K/mm3 (0.0-0.4) 01/17/20 05:34 Baso # (Auto) 0.0 K/mm3 (0.0-0.1) 01/17/20 05:34 Seg Neutrophils % 64.0 % (40.0-70.0) 01/17/20 05:34 Seg Neutrophils # 3.4 K/mm3 (1.8-7.7) 01/17/20 05:34 PT 17.1 Sec. (12.2-14.9) H 01/20/20 07:42 INR 1.41 (0.87-1.13) H 01/20/20 07:42 APTT 25.2 Sec. (24.2-36.6) 01/15/20 21:01 Heparin Anti-Xa Level 0.70 U.I./ml (0.3-0.7) 01/19/20 09:03 Sodium 132 mmol/L (137-145) L 01/20/20 07:42 Potassium 3.8 mmol/L (3.6-5.0) 01/20/20 07:42 Chloride 86.3 mmol/L (98-107) L 01/20/20 07:42 Carbon Dioxide 39 mmol/L (22-30) H 01/19/20 09:03 Anion Gap 10 mmol/L 01/19/20 09:03 BUN 8 mg/dL (7-17) 01/20/20 07:42 Creatinine 0.8 mg/dL (0.6-1.2) 01/20/20 07:42 Estimated GFR > 60 ml/min 01/20/20 07:42 BUN/Creatinine Ratio 10 % 01/20/20 07:42 Glucose 110 mg/dL (65-100) H 01/20/20 07:42 Calcium 9.3 mg/dL (8.4-10.2) 01/20/20 07:42 Total Bilirubin 0.40 mg/dL (0.1-1.2) 01/15/20 21:01 AST 37 units/L (5-40) 01/15/20 21:01 ALT 24 units/L (7-56) 01/15/20 21:01 Alkaline Phosphatase 62 units/L (35-129) 01/15/20 21:01 Troponin T 0.255 ng/mL (0.00-0.029) H* 01/17/20 05:34 NT-Pro-B Natriuret Pep 1893 pg/mL (0-900) H 01/15/20 21:01 Total Protein 5.8 g/dL (6.3-8.2) L 01/15/20 21:01 Albumin 3.3 g/dL (3.9-5) L 01/15/20 21:01 Albumin/Globulin Ratio 1.3 % 01/15/20 21:01 Triglycerides 81 mg/dL (2-149) 01/15/20 21:01 Cholesterol 106 mg/dL (50-199) 01/15/20 21:01 LDL Cholesterol Direct 60 mg/dL (50-130) 01/15/20 21:01 HDL Cholesterol 35 mg/dL (40-59) L 01/15/20 21:01 Cholesterol/HDL Ratio 3.02 % 01/15/20 21:01 Lipase 38 units/L (13-60) 01/15/20 21:01 - Diagnostic Impressions Diagnostic Impressions: Echocardiogram 01/16/20 03:58 Transthoracic Echocardiogram Indication: SOB BP: 133/79 HR: 105 Conclusions *The left ventricular chamber size is normal. *There is no left ventricular hypertrophy. *The estimated ejection fraction is 40-45%. *The basal inferoseptal, and mid inferoseptal wall segments are akinetic. *The left atrial chamber size is normal. *The right atrium is mildly dilated. *The right ventricle is mild to moderately dilated. Moderate pulmonary hypertension noted. *The right ventricular global systolic function is normal. * A thrombus is visualized in the left ventricle. There is fairly large,slightly mobile mass noted in apical area,c/w thrombus. There is an echogenic density structure in left ventricular measuring 1.95x1.99cm. Findings Left Ventricle: The left ventricular chamber size is normal. There is no left ventricular hypertrophy. The estimated ejection fraction is 40-45%. The basal inferoseptal, and mid inferoseptal wall segments are akinetic. A thrombus is visualized in the left ventricle.There is fairly large,slightly mobile mass noted in apical area,c/w thrombus. Left Atrium: The left atrial chamber size is normal. Right Ventricle: The right ventricle is mild to moderately dilated. The right ventricular global systolic function is normal. Right Atrium: The right atrium is mildly dilated. Aortic Valve: Mild aortic leaflet calcification is visualized. There is no evidence of aortic regurgitation. Mitral Valve: The mitral valve leaflets are mildly thickened. There is mild to moderate mitral regurgitation. Tricuspid Valve: The tricuspid valve leaflets are normal. There is mild tricuspid regurgitation. There is evidence of moderate pulmonary hypertension. Pulmonic Valve: There is no evidence of pulmonic valve thickening. There is no evidence of pulmonic regurgitation. Pericardium: There is no pericardial effusion. Aorta: The aorta appears normal. Venous: The inferior vena cava is not visualized. Contrast: Intravenous contrast was used to enhance endocardial border definition. Measurements Chambers 2D Name Value Normal Range IVSd (2D) 0.97 cm (0.6 - 1.1) LVPWd (2D) 0.92 cm (0.6 - 1.1) LVIDd (2D) 5.71 cm (3.7 - 5.6) LVIDs (2D) 4.41 cm (2 - 3.8) LV FS (2D) 22.78 % - EF Teichholz (2D) 45.16 % - Ao root diameter (2D) 2.71 cm (2 - 3.7) Volumes/Mass Name Value Normal Range LA ESV SP 4CH (A/L) 39.91 ml - LA ESV SP 2CH (A/L) 85.03 ml - LA ESV BP (A/L) 59.07 ml - LA ESV BP (A/L) index 29.83 ml/m2 - LA ESV SP 4CH (MOD) 37.67 ml - LA ESV SP 2CH (MOD) 78.85 ml - LA ESV BP (MOD) 53.69 ml - LA ESV BP (MOD) index 27.12 ml/m2 - Aortic Valve Name Value Normal Range AV Vmax 1.46 m/sec - AV VTI 22.97 cm - AV peak gradient 8.48 mmHg - AV mean gradient 4.53 mmHg - LVOT diameter 1.77 cm - LVOT Vmax 0.69 m/sec - LVOT VTI 12.12 cm - LVOT peak gradient 1.93 mmHg - LVOT mean gradient 1.06 mmHg - SV LVOT 29.95 ml - BETI (continuity Vmax) 1.18 cm2 - BETI (continuity VTI) 1.3 cm2 - Ascending Ao 2.92 cm - Mitral Valve Name Value Normal Range MV PHT 68.81 msec - MR Vmax 4.98 m/sec - MVA (PHT) 3.2 cm2 - Tricuspid Valve Name Value Normal Range TR Vmax 3.17 m/sec - TR peak gradient 40.11 mmHg - RAP 8 mmHg - RVSP 48 mmHg - Pulmonic Valve/Qp:Qs Name Value Normal Range PV Vmax 0.72 m/sec - PV peak gradient 2.09 mmHg - PV acceleration time 182.68 msec - Wallmotion BAS Not Seen BA Not Seen BAL Not Seen ABBY Not Seen BI Not Seen BIS Akinetic MAS Not Seen MA Not Seen MAL Not Seen MIL Not Seen AK Not Seen MIS Akinetic Not Seen AA Not Seen AL Not Seen AI Not Seen APEX Not Seen Cao/IV: Voiding Method External Female Catheter IV Catheter Type [Right INT / Saline Lock Forearm] IV Catheter Type [Right Hand] INT / Saline Lock Active Medications - Current Medications Current Medications: Generic Name Dose Route Start Last Admin Trade Name Freq PRN Reason Stop Dose Admin Acetaminophen 650 mg 01/16/20 03:50 01/18/20 15:29 Tylenol PO 650 mg Q4H PRN Administration Pain MILD(1-3)/Fever >100.5/AMAYA Aspirin 81 mg 01/19/20 10:00 01/19/20 09:41 Aspirin 81 Mg Tab Chew PO 81 mg QDAY NESTOR Administration Atorvastatin Calcium 40 mg 01/16/20 22:00 01/19/20 21:35 Lipitor PO 40 mg QHS NESTOR Administration Carvedilol 6.25 mg 01/16/20 22:00 01/19/20 21:36 Coreg PO 6.25 mg BID NESTOR Administration Furosemide 40 mg 01/16/20 06:00 01/20/20 07:44 Lasix IV 40 mg BID@0600,1800 NESTOR Administration Heparin Sodium/Sodium Chloride 25,000 unit in 500 mls @ 20 mls/hr 01/15/20 23:45 01/19/20 21:38 Heparin/ 0.45% Nacl-25,000 Unit/500 Ml IV 1,150 units/hr TITRATE NESTOR 23 mls/hr Administration Protocol 1,000 UNITS/HR Losartan Potassium 25 mg 01/17/20 10:00 01/19/20 09:41 Cozaar PO 25 mg QDAY NESTOR Administration Magnesium Hydroxide 30 ml 01/16/20 03:50 01/18/20 02:42 Milk Of Magnesia PO 30 ml Q4H PRN Administration Constipation Metolazone 5 mg 01/18/20 13:05 01/19/20 09:42 Metolazone 2.5 Mg Tab PO 5 mg QDAY NESTOR Administration Ondansetron HCl 4 mg 01/16/20 03:50 Zofran IV Q8H PRN Nausea And Vomiting Oxycodone/Acetaminophen 1 tab 01/18/20 18:25 01/19/20 06:39 Oxycodone /Acetaminophen 5-325mg Tab PO 1 tab Q6H PRN Administration Pain, Moderate (4-6) Sodium Chloride 10 ml 01/16/20 10:00 01/20/20 08:35 Sodium Chloride Flush Syringe 10 Ml IV Not Given BID NESTOR Sodium Chloride 10 ml 01/16/20 03:50 01/18/20 06:00 Sodium Chloride Flush Syringe 10 Ml IV 10 ml PRN PRN Administration LINE FLUSH Warfarin Sodium 10 mg 01/18/20 17:00 01/19/20 18:45 Warfarin 10 Mg Tab PO 10 mg DAILY@1700 NESTOR Administration Nutrition/Malnutrition Assess - Dietary Evaluation Nutrition/Malnutrition Findings: Nutrition Notes Start: 01/18/20 13:25 Freq: Status: Active Protocol: Document 01/19/20 12:10 AT (Rec: 01/19/20 12:14 AT [id number]) Co-Sign 01/19/20 12:10 LP Nutrition Notes Initial or Follow up Brief Note Current Diagnosis Hypertension,Heart Failure Other Pertinent Diagnosis NSTEMI, PE, NSVT, cardiomyopathy Current Diet Cardiac Subjective/Other Information Drug Nutrient Interaction education. Visited pt at bedside, pt accepted education on drug nutrient interactions . Provided handout. Pt had no further questions. #1 Nutrition Diagnosis Food and nutrition-related knowledge deficit Etiology no previous education on coumadin drug-nutrient interactions As Evidenced by Signs and Symptoms pt had no previous education on foods related to the drug Nutrition Intervention Teaching Recipient Patient Learning Readiness Good Teaching Methods Discussion,Handout Education Handouts Provided Vitamin K and Medications Barriers to Learning No Barriers RD phone number provided Yes Patient aware of follow up options Yes Anticipated Discharge Needs: Cardiad diet with fluid restriction Revisit per MD consult or patient Sign Off request:
[2020-01-20] MEDS: oxyCODONE /ACETAMINOPHEN 5-325MG TAB PO PRN ×3 (09:05→23:11)
[2020-01-20] MEDS: carvediloL 6.25 MG TAB PO SCH ×2 (09:40→23:13)
[2020-01-20] MEDS: LOSARTAN 25 MG TAB PO SCH (09:40)
[2020-01-20] MEDS: metOLazone 2.5 MG TAB PO SCH (09:40)
[2020-01-20] MEDS: ASPIRIN 81 MG TAB CHEW PO SCH (09:40)
--- NOTE | 2020-01-20 11:13 | Progress Note ---
Assessment and Plan Cont heparin gtt and coumadin with tx INR 2-3. Will defer ischemic evaluation at this time in setting of LV thrombus and plan to pursue as OP. Tele unremarkable overnight. Cont GDMT, lasix (will change from iv to po), zaroxolyn. Pt is net neg 4.3L although suspect she has diuresed more than reported based on clinical appearance. Encourage increased activity/ambulation - PT has been consulted. - Patient Problems (1) Acute HFrEF (heart failure with reduced ejection fraction) Current Visit: Yes Status: Acute (2) Cardiomyopathy Current Visit: Yes Status: Acute (3) DVT prophylaxis Current Visit: Yes Status: Acute (4) History of hypertension Current Visit: Yes Status: Acute (5) LV (left ventricular) mural thrombus Current Visit: Yes Status: Chronic (6) Morbid obesity Current Visit: Yes Status: Chronic (7) Noncompliance with medication regimen Current Visit: Yes Status: Chronic Subjective Principal diagnosis: HF Interval history: less sob, feeling better Objective Vital Signs Temp Pulse Resp BP BP Pulse Ox 01/20/20 07:59 98.6 F 93 H 18 106/73 89 01/20/20 06:09 98 F 94 H 18 115/69 01/19/20 22:59 99.3 F 87 18 114/61 93 01/19/20 20:47 98.9 F 106 H 16 122/68 94 01/19/20 20:25 91 H 01/19/20 15:44 99.2 F 104 H 18 114/66 93 01/19/20 15:00 91 H 01/19/20 12:00 98.7 F 18 113/58 01/19/20 11:33 91 H 96 - Physical Examination General: No Apparent Distress HEENT: Positive: PERRL, Normocephaly, Mucus Membranes Moist Neck: Positive: neck supple, trachea midline Neuro: Positive: Grossly Intact Abdomen: Negative: Tender Skin: Negative: Rash Musculoskeletal: No Pain Extremities: Present: edema (generalized), +2 Edema (BLE) - Labs and Meds Coagulation 01/20/20 Range/Units 07:42 PT 17.1 H (12.2-14.9) Sec. INR 1.41 H (0.87-1.13) Comprehensive Metabolic Panel 01/19/20 01/20/20 Range/Units 09:03 07:42 Sodium 132 L (137-145) mmol/L Potassium 3.8 (3.6-5.0) mmol/L Chloride 86.3 L (98-107) mmol/L Carbon Dioxide 39 H (22-30) mmol/L BUN 8 8 (7-17) mg/dL Creatinine 0.7 0.8 (0.6-1.2) mg/dL Glucose 110 H (65-100) mg/dL Calcium 9.3 9.3 (8.4-10.2) mg/dL - Imaging and Cardiology EKG: report reviewed, image reviewed Echo: report reviewed (EF 40-45%, basal inferoseptal and mid inferoseptal akinesis, RA mildly dilated, RV mild to mod dilated, mod pulm HTN with RVSP 48mmHg, thrombus visualized in LV - fairly large and slightly mobile in apical area.) - EKG Sinus rhythms and dysrhythmias: sinus rhythm AV and intraventricular conduction: right bundle branch block
[2020-01-20] MEDS: WARFARIN 10 MG TAB PO SCH (17:50)
[2020-01-20] MEDS: HEPARIN/ 0.45% NACL DRIP 25,000 UNIT/500 ML BAG IV SCH (17:50)
[2020-01-20] MEDS: FUROSEMIDE 40 MG TAB PO SCH (17:50)
[2020-01-21 05:40] LABS: BUN/Creatinine Ratio 11; Blood Urea Nitrogen 8 mg/dL (7-17); Calcium 9.4 mg/dL (8.4-10.2); Hemolysis Index 6; INR 1.67 (0.87-1.13)
[2020-01-21 05:52] LABS: Hematocrit 35.1 % (30.3-42.9); Hemoglobin 10.6 gm/dl (10.1-14.3)
[2020-01-21] MEDS: FUROSEMIDE 40 MG TAB PO SCH ×2 (06:21→17:19)
[2020-01-21] MEDS: oxyCODONE /ACETAMINOPHEN 5-325MG TAB PO PRN ×2 (08:58→20:07)
[2020-01-21] MEDS: LOSARTAN 25 MG TAB PO SCH (10:37)
[2020-01-21] MEDS: ASPIRIN 81 MG TAB CHEW PO SCH (10:37)
[2020-01-21] MEDS: carvediloL 6.25 MG TAB PO SCH ×2 (10:37→21:47)
[2020-01-21] MEDS: metOLazone 2.5 MG TAB PO SCH (10:37)
--- NOTE | 2020-01-21 11:13 | Progress Note ---
Assessment and Plan Cont heparin gtt and coumadin with tx INR 2-3. Will defer ischemic evaluation at this time in setting of LV thrombus and plan to pursue as OP. Tele unremarkable overnight. Cont GDMT, lasix (will change from iv to po), zaroxolyn. Pt is net neg 4.3L although suspect she has diuresed more than reported based on clinical appearance. Encourage increased activity/ambulation - PT has been consulted. - Patient Problems (1) Acute HFrEF (heart failure with reduced ejection fraction) Current Visit: Yes Status: Acute (2) Cardiomyopathy Current Visit: Yes Status: Acute (3) DVT prophylaxis Current Visit: Yes Status: Acute (4) History of hypertension Current Visit: Yes Status: Acute (5) LV (left ventricular) mural thrombus Current Visit: Yes Status: Chronic (6) Morbid obesity Current Visit: Yes Status: Chronic (7) Noncompliance with medication regimen Current Visit: Yes Status: Chronic Subjective Principal diagnosis: HF Interval history: less sob, feeling better Objective Vital Signs Temp Pulse Resp BP Pulse Ox 01/21/20 07:56 98.1 F 92 H 18 109/67 91 01/21/20 06:00 93 H 01/21/20 04:24 98.2 F 91 H 16 113/51 92 01/21/20 01:00 16 01/20/20 23:50 98.8 F 81 16 103/45 86 01/20/20 23:13 99 H 98/54 01/20/20 22:00 105 H 01/20/20 19:48 99.0 F 99 H 16 98/54 89 01/20/20 17:19 98.9 F 101 H 18 122/84 96 01/20/20 14:00 91 H 01/20/20 12:17 98.9 F 91 H 20 134/74 98 - Physical Examination General: No Apparent Distress HEENT: Positive: PERRL, Normocephaly, Mucus Membranes Moist Neck: Positive: neck supple, trachea midline Neuro: Positive: Grossly Intact Abdomen: Negative: Tender Skin: Negative: Rash Musculoskeletal: No Pain Extremities: Present: edema (generalized), +2 Edema (BLE) - Labs and Meds Coagulation 01/21/20 Range/Units 04:44 PT 19.6 H (12.2-14.9) Sec. INR 1.67 H (0.87-1.13) CBC 01/21/20 Range/Units 04:44 Hgb 10.6 (10.1-14.3) gm/dl Hct 35.1 (30.3-42.9) % Plt Count 187 (140-440) K/mm3 Comprehensive Metabolic Panel 01/21/20 Range/Units 04:44 Sodium 135 L (137-145) mmol/L Potassium 3.2 L (3.6-5.0) mmol/L Chloride 87.4 L (98-107) mmol/L Carbon Dioxide 38 H (22-30) mmol/L BUN 8 (7-17) mg/dL Creatinine 0.7 (0.6-1.2) mg/dL Glucose 106 H (65-100) mg/dL Calcium 9.4 (8.4-10.2) mg/dL - Imaging and Cardiology EKG: report reviewed, image reviewed Echo: report reviewed (EF 40-45%, basal inferoseptal and mid inferoseptal akinesis, RA mildly dilated, RV mild to mod dilated, mod pulm HTN with RVSP 48mmHg, thrombus visualized in LV - fairly large and slightly mobile in apical area.) - EKG Sinus rhythms and dysrhythmias: sinus rhythm AV and intraventricular conduction: right bundle branch block
--- NOTE | 2020-01-21 14:33 | Progress Note ---
Assessment and Plan Assessment and Plan Assessment and plan: (1) New onset of congestive heart failure Current Visit: Yes Status: Acute Plan to address problem: Patient placed on diuretics. Will monitor input and output and also monitor daily weight. Ejection fraction 45% next Cardiology consult and follow-up appreciated 2)left ventricular thrombus -Echo was done and showed ejection fraction of 40 to 45%, basal inferoseptal and mid inferoseptal wall segments are akinetic. -There is a large left ventricular thrombus and patient is on heparin -Cardiology is following the patient -INR not therapeutic at 1.67 (3) Elevated troponin Current Visit: Yes Status: Acute Plan to address problem: On heparin drip for LV thrombus (4) History of hypertension Current Visit: Yes Status: Acute Plan to address problem: Blood pressure well controlled tions once reconciled and monitor vital signs closely. (5) discharge planning issues Current Visit: Yes Status: Acute Patient may be discharged tomorrow if INR more than 1.80 Patient on heparin drip Patient symptomatically better Subjective Date of service: 01/21/20 Principal diagnosis: New onset CHF, anticoagulation Interval history: 54-year-old -[place] female with known history of hypertension, obesity presenting to the emergency room today complaining of shortness of breath and generalized swelling especially in the lower extremity. This has been getting progressively worse over the past 1 month. She admits that she has not been quite compliant with blood pressure medication amlodipine in the last 3 weeks. Patient has had some cough which is nonproductive, she has had orthopnea, swelling in the lower extremities and also the abdomen. She has had some intermittent left-sided chest pain which has since resolved. Patient denies any nausea or vomiting, denies any headache or dizziness, denies any diaphoresis, denies any sick contacts or recent travel. Denies any contact with anyone with COVID-19. Upon arrival in the emergency room today patient was slightly hypoxic on room air with O2 saturation ranging from 89% to 93%. Work-up in the emergency room reveals pulmonary edema. Troponin was also slightly elevated. Patient is being admitted for new onset CHF and elevated troponin. 01/18/2020; patient is on IV Lasix, metolazone, carvedilol, atorvastatin and losartan. Patient is on heparin drip for left ventricular thrombus. Cardiology recommend ischemic work-up to be postponed as outpatient because of her recent finding of left ventricular thrombus. 01/19/2020; continue with IV, Lasix metolazone and other guideline medical therapy for CHF. Continue with IV heparin for left ventricular thrombus. Cardiology is following the patient. We will do PT OT. 01/20/2020; continue diuresis with IV Lasix and metolazone, continue guideline medical therapy for CHF.. Continue with IV heparin and Coumadin for left ventricular thrombus. INR this morning is 1.4. Continue to monitor. Encourage ambulation. PT evaluated and no need. 01/21/2020 Patient symptomatically better. Not on oxygen. Able to lie flat. Patient was not discharged because the INR being subtherapeutic at 1.67 Possible discharge tomorrow History Interval history: Patient was seen and evaluated this morning Patient's shortness of breath resolved, patient is off oxygen INR to be therapeutic for discharge possibly tomorrow Objective - Constitutional Vitals: Vital Signs - 12hr 01/21/20 01/21/20 01/21/20 04:24 06:00 07:56 Temperature 98.2 F 98.1 F Pulse Rate 91 H 93 H 92 H Respiratory 16 18 Rate Blood Pressure 113/51 109/67 O2 Sat by Pulse 92 91 Oximetry 01/21/20 11:42 Temperature 97.2 F L Pulse Rate 89 Respiratory 18 Rate Blood Pressure 115/70 O2 Sat by Pulse 97 Oximetry General appearance: Present: no acute distress, well-nourished - EENT Eyes: PERRL, EOM intact ENT: hearing intact, clear oral mucosa Ears: bilateral: normal - Neck Neck: supple, normal ROM - Respiratory Respiratory effort: normal Respiratory: bilateral: CTA - Breasts Breasts: normal - Cardiovascular Heart rate: 78 Rhythm: regular Heart Sounds: Present: S1 & S2. Absent: gallop, rub Extremities: pulses intact, No edema, normal color, Full ROM - Gastrointestinal General gastrointestinal: Present: soft, non-tender, non-distended, normal bowel sounds - Genitourinary Female genitourinary: normal - Integumentary Integumentary: clear, warm, dry - Musculoskeletal Musculoskeletal: 1, strength equal bilaterally - Neurologic Neurologic: moves all extremities - Psychiatric Psychiatric: memory intact, appropriate mood/affect, intact judgment & insight - Labs CBC & Chem 7: 01/21/20 04:44 01/21/20 04:44 Labs: Abnormal lab results 01/20/20 01/21/20 01/21/20 Range/Units 20:04 04:44 04:44 PT 19.6 H (12.2-14.9) Sec. INR 1.67 H (0.87-1.13) Heparin Anti-Xa Level 0.14 L (0.3-0.7) U.I./ml Sodium 135 L (137-145) mmol/L Potassium 3.2 L (3.6-5.0) mmol/L Chloride 87.4 L (98-107) mmol/L Carbon Dioxide 38 H (22-30) mmol/L Glucose 106 H (65-100) mg/dL HEART Score - HEART Score EKG: Non-specific Age: 45-65 Risk factors: 1-2 risk factors Troponin: Troponin T 0.255 ng/mL (0.00-0.029) H* 01/17/20 05:34 Troponin: 1-3x normal limit
[2020-01-21] MEDS: WARFARIN 10 MG TAB PO SCH (17:19)
[2020-01-22] MEDS: FUROSEMIDE 40 MG TAB PO SCH ×2 (06:12→18:09)
[2020-01-22] MEDS: oxyCODONE /ACETAMINOPHEN 5-325MG TAB PO PRN ×2 (06:15→13:41)
[2020-01-22 06:32] LABS: INR 2.15 (0.87-1.13)
[2020-01-22 06:43] LABS: BUN/Creatinine Ratio 13; Blood Urea Nitrogen 10 mg/dL (7-17); Calcium 9.3 mg/dL (8.4-10.2); Hemolysis Index 2
[2020-01-22] MEDS: metOLazone 2.5 MG TAB PO SCH (09:17)
[2020-01-22] MEDS: carvediloL 6.25 MG TAB PO SCH (09:17)
[2020-01-22] MEDS: ASPIRIN 81 MG TAB CHEW PO SCH (09:17)
[2020-01-22] MEDS: LOSARTAN 25 MG TAB PO SCH (09:17)
--- NOTE | 2020-01-22 10:52 | Progress Note ---
Assessment and Plan Assessment and plan: (1) New onset of congestive heart failure Current Visit: Yes Status: Acute Plan to address problem: Patient placed on diuretics. Will monitor input and output and also monitor daily weight. Ejection fraction 45% next Cardiology consult and follow-up appreciated 2)left ventricular thrombus -Echo was done and showed ejection fraction of 40 to 45%, basal inferoseptal and mid inferoseptal wall segments are akinetic. -There is a large left ventricular thrombus and patient is on heparin -Cardiology is following the patient -INR not therapeutic at 1.67 (3) Elevated troponin Current Visit: Yes Status: Acute Plan to address problem: On heparin drip for LV thrombus (4) History of hypertension Current Visit: Yes Status: Acute Plan to address problem: Blood pressure well controlled tions once reconciled and monitor vital signs closely. (5) discharge planning issues Current Visit: Yes Status: Acute Patient may be discharged tomorrow if INR more than 1.80 Patient on heparin drip Patient symptomatically better Subjective Date of service: 01/21/20 Principal diagnosis: New onset CHF, anticoagulation Interval history: 54-year-old -[place] female with known history of hypertension, obesity presenting to the emergency room today complaining of shortness of breath and generalized swelling especially in the lower extremity. This has been getting progressively worse over the past 1 month. She admits that she has not been quite compliant with blood pressure medication amlodipine in the last 3 weeks. Patient has had some cough which is nonproductive, she has had orthopnea, swelling in the lower extremities and also the abdomen. She has had some intermittent left-sided chest pain which has since resolved. Patient denies any nausea or vomiting, denies any headache or dizziness, denies any diaphoresis, denies any sick contacts or recent travel. Denies any contact with anyone with COVID-19. Upon arrival in the emergency room today patient was slightly hypoxic on room air with O2 saturation ranging from 89% to 93%. Work-up in the emergency room reveals pulmonary edema. Troponin was also slightly elevated. Patient is being admitted for new onset CHF and elevated troponin. 01/18/2020; patient is on IV Lasix, metolazone, carvedilol, atorvastatin and losartan. Patient is on heparin drip for left ventricular thrombus. Cardiology recommend ischemic work-up to be postponed as outpatient because of her recent finding of left ventricular thrombus. 01/19/2020; continue with IV, Lasix metolazone and other guideline medical therapy for CHF. Continue with IV heparin for left ventricular thrombus. Cardiology is following the patient. We will do PT OT. 01/20/2020; continue diuresis with IV Lasix and metolazone, continue guideline medical therapy for CHF.. Continue with IV heparin and Coumadin for left ventricular thrombus. INR this morning is 1.4. Continue to monitor. Encourage ambulation. PT evaluated and no need. 01/21/2020 Patient symptomatically better. Not on oxygen. Able to lie flat. Patient was not discharged because the INR being subtherapeutic at 1.67 Possible discharge tomorrow Hospitalist Physical - Constitutional Vitals: Temp Pulse Resp BP Pulse Ox 98.2 F 58 L 20 115/69 96 01/22/20 09:08 01/22/20 09:08 01/22/20 09:08 01/22/20 09:08 01/22/20 09:08 General appearance: Present: no acute distress, well-nourished HEART Score - HEART Score EKG: Non-specific Age: 45-65 Risk factors: 1-2 risk factors Troponin: Troponin T 0.255 ng/mL (0.00-0.029) H* 01/17/20 05:34 Troponin: 1-3x normal limit Results - Labs CBC & Chem 7: 01/21/20 04:44 01/22/20 06:10 Labs: Laboratory Last Values WBC 5.3 K/mm3 (4.5-11.0) 01/17/20 05:34 RBC 5.85 M/mm3 (3.65-5.03) H 01/17/20 05:34 Hgb 10.6 gm/dl (10.1-14.3) 01/21/20 04:44 Hct 35.1 % (30.3-42.9) 01/21/20 04:44 MCV 63 fl (79-97) L 01/17/20 05:34 MCH 19 pg (28-32) L 01/17/20 05:34 MCHC 30 % (30-34) 01/17/20 05:34 RDW 20.4 % (13.2-15.2) H 01/17/20 05:34 Plt Count 187 K/mm3 (140-440) 01/21/20 04:44 Lymph % (Auto) 22.7 % (13.4-35.0) 01/17/20 05:34 Chaves % (Auto) 10.5 % (0.0-7.3) H 01/17/20 05:34 Eos % (Auto) 2.2 % (0.0-4.3) 01/17/20 05:34 Baso % (Auto) 0.6 % (0.0-1.8) 01/17/20 05:34 Lymph # (Auto) 1.2 K/mm3 (1.2-5.4) 01/17/20 05:34 Chaves # (Auto) 0.6 K/mm3 (0.0-0.8) 01/17/20 05:34 Eos # (Auto) 0.1 K/mm3 (0.0-0.4) 01/17/20 05:34 Baso # (Auto) 0.0 K/mm3 (0.0-0.1) 01/17/20 05:34 Seg Neutrophils % 64.0 % (40.0-70.0) 01/17/20 05:34 Seg Neutrophils # 3.4 K/mm3 (1.8-7.7) 01/17/20 05:34 PT 24.2 Sec. (12.2-14.9) H 01/22/20 06:10 INR 2.15 (0.87-1.13) H 01/22/20 06:10 APTT 25.2 Sec. (24.2-36.6) 01/15/20 21:01 Heparin Anti-Xa Level 0.61 U.I./ml (0.3-0.7) 01/22/20 06:10 Sodium 135 mmol/L (137-145) L 01/22/20 06:10 Potassium 3.0 mmol/L (3.6-5.0) L 01/22/20 06:10 Chloride 85.3 mmol/L (98-107) L 01/22/20 06:10 Carbon Dioxide 39 mmol/L (22-30) H 01/22/20 06:10 Anion Gap 14 mmol/L 01/22/20 06:10 BUN 10 mg/dL (7-17) 01/22/20 06:10 Creatinine 0.8 mg/dL (0.6-1.2) 01/22/20 06:10 Estimated GFR > 60 ml/min 01/22/20 06:10 BUN/Creatinine Ratio 13 % 01/22/20 06:10 Glucose 101 mg/dL (65-100) H 01/22/20 06:10 Calcium 9.3 mg/dL (8.4-10.2) 01/22/20 06:10 Total Bilirubin 0.40 mg/dL (0.1-1.2) 01/15/20 21:01 AST 37 units/L (5-40) 01/15/20 21:01 ALT 24 units/L (7-56) 01/15/20 21:01 Alkaline Phosphatase 62 units/L (35-129) 01/15/20 21:01 Troponin T 0.255 ng/mL (0.00-0.029) H* 01/17/20 05:34 NT-Pro-B Natriuret Pep 1893 pg/mL (0-900) H 01/15/20 21:01 Total Protein 5.8 g/dL (6.3-8.2) L 01/15/20 21:01 Albumin 3.3 g/dL (3.9-5) L 01/15/20 21:01 Albumin/Globulin Ratio 1.3 % 01/15/20 21:01 Triglycerides 81 mg/dL (2-149) 01/15/20 21:01 Cholesterol 106 mg/dL (50-199) 01/15/20 21:01 LDL Cholesterol Direct 60 mg/dL (50-130) 01/15/20 21:01 HDL Cholesterol 35 mg/dL (40-59) L 01/15/20 21:01 Cholesterol/HDL Ratio 3.02 % 01/15/20 21:01 Lipase 38 units/L (13-60) 01/15/20 21:01 - Diagnostic Impressions Diagnostic Impressions: Echocardiogram 01/16/20 03:58 Transthoracic Echocardiogram Indication: SOB BP: 133/79 HR: 105 Conclusions *The left ventricular chamber size is normal. *There is no left ventricular hypertrophy. *The estimated ejection fraction is 40-45%. *The basal inferoseptal, and mid inferoseptal wall segments are akinetic. *The left atrial chamber size is normal. *The right atrium is mildly dilated. *The right ventricle is mild to moderately dilated. Moderate pulmonary hypertension noted. *The right ventricular global systolic function is normal. * A thrombus is visualized in the left ventricle. There is fairly large,slightly mobile mass noted in apical area,c/w thrombus. There is an echogenic density structure in left ventricular measuring 1.95x1.99cm. Findings Left Ventricle: The left ventricular chamber size is normal. There is no left ventricular hypertrophy. The estimated ejection fraction is 40-45%. The basal inferoseptal, and mid inferoseptal wall segments are akinetic. A thrombus is visualized in the left ventricle.There is fairly large,slightly mobile mass noted in apical area,c/w thrombus. Left Atrium: The left atrial chamber size is normal. Right Ventricle: The right ventricle is mild to moderately dilated. The right ventricular global systolic function is normal. Right Atrium: The right atrium is mildly dilated. Aortic Valve: Mild aortic leaflet calcification is visualized. There is no evidence of aortic regurgitation. Mitral Valve: The mitral valve leaflets are mildly thickened. There is mild to moderate mitral regurgitation. Tricuspid Valve: The tricuspid valve leaflets are normal. There is mild tricuspid regurgitation. There is evidence of moderate pulmonary hypertension. Pulmonic Valve: There is no evidence of pulmonic valve thickening. There is no evidence of pulmonic regurgitation. Pericardium: There is no pericardial effusion. Aorta: The aorta appears normal. Venous: The inferior vena cava is not visualized. Contrast: Intravenous contrast was used to enhance endocardial border definition. Measurements Chambers 2D Name Value Normal Range IVSd (2D) 0.97 cm (0.6 - 1.1) LVPWd (2D) 0.92 cm (0.6 - 1.1) LVIDd (2D) 5.71 cm (3.7 - 5.6) LVIDs (2D) 4.41 cm (2 - 3.8) LV FS (2D) 22.78 % - EF Teichholz (2D) 45.16 % - Ao root diameter (2D) 2.71 cm (2 - 3.7) Volumes/Mass Name Value Normal Range LA ESV SP 4CH (A/L) 39.91 ml - LA ESV SP 2CH (A/L) 85.03 ml - LA ESV BP (A/L) 59.07 ml - LA ESV BP (A/L) index 29.83 ml/m2 - LA ESV SP 4CH (MOD) 37.67 ml - LA ESV SP 2CH (MOD) 78.85 ml - LA ESV BP (MOD) 53.69 ml - LA ESV BP (MOD) index 27.12 ml/m2 - Aortic Valve Name Value Normal Range AV Vmax 1.46 m/sec - AV VTI 22.97 cm - AV peak gradient 8.48 mmHg - AV mean gradient 4.53 mmHg - LVOT diameter 1.77 cm - LVOT Vmax 0.69 m/sec - LVOT VTI 12.12 cm - LVOT peak gradient 1.93 mmHg - LVOT mean gradient 1.06 mmHg - SV LVOT 29.95 ml - BETI (continuity Vmax) 1.18 cm2 - BETI (continuity VTI) 1.3 cm2 - Ascending Ao 2.92 cm - Mitral Valve Name Value Normal Range MV PHT 68.81 msec - MR Vmax 4.98 m/sec - MVA (PHT) 3.2 cm2 - Tricuspid Valve Name Value Normal Range TR Vmax 3.17 m/sec - TR peak gradient 40.11 mmHg - RAP 8 mmHg - RVSP 48 mmHg - Pulmonic Valve/Qp:Qs Name Value Normal Range PV Vmax 0.72 m/sec - PV peak gradient 2.09 mmHg - PV acceleration time 182.68 msec - Wallmotion BAS Not Seen BA Not Seen BAL Not Seen ABBY Not Seen BI Not Seen BIS Akinetic MAS Not Seen MA Not Seen MAL Not Seen MIL Not Seen MN Not Seen MIS Akinetic Not Seen AA Not Seen AL Not Seen AI Not Seen APEX Not Seen Cao/IV: Voiding Method Toilet IV Catheter Type [Right INT / Saline Lock Forearm] IV Catheter Type [Right Hand] INT / Saline Lock Active Medications - Current Medications Current Medications: Generic Name Dose Route Start Last Admin Trade Name Freq PRN Reason Stop Dose Admin Acetaminophen 650 mg 01/16/20 03:50 01/18/20 15:29 Tylenol PO 650 mg Q4H PRN Administration Pain MILD(1-3)/Fever >100.5/AMAYA Aspirin 81 mg 01/19/20 10:00 01/22/20 09:17 Aspirin 81 Mg Tab Chew PO 81 mg QDAY NESTOR Administration Atorvastatin Calcium 40 mg 01/16/20 22:00 12/13/20 21:47 Lipitor PO 40 mg QHS NESTOR Administration Carvedilol 6.25 mg 01/16/20 22:00 01/22/20 09:17 Coreg PO 6.25 mg BID NESTOR Administration Furosemide 40 mg 01/20/20 18:00 01/22/20 06:12 Furosemide 40 Mg Tab PO 40 mg 0600,1800 NESTOR Administration Heparin Sodium/Sodium Chloride 25,000 unit in 500 mls @ 20 mls/hr 01/15/20 23:45 01/21/20 05:49 Heparin/ 0.45% Nacl-25,000 Unit/500 Ml IV 1,350 units/hr TITRATE NESTOR 27 mls/hr Titration Protocol 1,000 UNITS/HR Losartan Potassium 25 mg 01/17/20 10:00 01/22/20 09:17 Cozaar PO 25 mg QDAY NESTOR Administration Magnesium Hydroxide 30 ml 01/16/20 03:50 01/18/20 02:42 Milk Of Magnesia PO 30 ml Q4H PRN Administration Constipation Metolazone 5 mg 01/18/20 13:05 01/22/20 09:17 Metolazone 2.5 Mg Tab PO 5 mg QDAY NESTOR Administration Ondansetron HCl 4 mg 01/16/20 03:50 Zofran IV Q8H PRN Nausea And Vomiting Oxycodone/Acetaminophen 1 tab 01/18/20 18:25 01/22/20 06:15 Oxycodone /Acetaminophen 5-325mg Tab PO 1 tab Q6H PRN Administration Pain, Moderate (4-6) Potassium Chloride 40 meq 01/22/20 11:00 Potassium Chloride Er 20 Meq Tab PO 01/22/20 14:01 Q3H NESTOR Sodium Chloride 10 ml 01/16/20 10:00 01/22/20 09:17 Sodium Chloride Flush Syringe 10 Ml IV 10 ml BID NESTOR Administration Sodium Chloride 10 ml 01/16/20 03:50 01/18/20 06:00 Sodium Chloride Flush Syringe 10 Ml IV 10 ml PRN PRN Administration LINE FLUSH Warfarin Sodium 10 mg 01/18/20 17:00 01/21/20 17:19 Warfarin 10 Mg Tab PO 10 mg DAILY@1700 NESTOR Administration Nutrition/Malnutrition Assess - Dietary Evaluation Nutrition/Malnutrition Findings: Nutrition Notes Start: 01/18/20 13:25 Freq: Status: Active Protocol: Document 01/19/20 12:10 AT (Rec: 01/19/20 12:14 AT [email or web address]) Co-Sign 01/19/20 12:10 LP Nutrition Notes Initial or Follow up Brief Note Current Diagnosis Hypertension,Heart Failure Other Pertinent Diagnosis NSTEMI, PE, NSVT, cardiomyopathy Current Diet Cardiac Subjective/Other Information Drug Nutrient Interaction education. Visited pt at bedside, pt accepted education on drug nutrient interactions . Provided handout. Pt had no further questions. #1 Nutrition Diagnosis Food and nutrition-related knowledge deficit Etiology no previous education on coumadin drug-nutrient interactions As Evidenced by Signs and Symptoms pt had no previous education on foods related to the drug Nutrition Intervention Teaching Recipient Patient Learning Readiness Good Teaching Methods Discussion,Handout Education Handouts Provided Vitamin K and Medications Barriers to Learning No Barriers RD phone number provided Yes Patient aware of follow up options Yes Anticipated Discharge Needs: Cardiad diet with fluid restriction Revisit per MD consult or patient Sign Off request:
--- NOTE | 2020-01-22 11:32 | Progress Note ---
Assessment and Plan INR is therapeutic at 2.15. D/c heparin gtt and cont coumadin with tx INR 2-3. Currently stable cardiac status. Pt appears to be nearing euvolemia. She may discharge from cardiology standpoint. At discharge, recommend PO lasix 40mg BID and KCL 20mEq daily. Cont all other present cardiac management, including ASA 81, lipitor, coreg, losartan. Will defer ischemic evaluation at this time in setting of LV thrombus and plan to pursue as OP. Follow up in our [place] office for INR check on 01/30/2020 @ 11:00AM. Follow up in our [place] office with Dr. Moore on 02/06/2020 @ 3:00PM. The patient has been seen in conjunction with Dr. Howard Zamudio who agrees with the assessment and plan of care. - Patient Problems (1) Acute HFrEF (heart failure with reduced ejection fraction) Current Visit: Yes Status: Acute (2) Cardiomyopathy Current Visit: Yes Status: Acute (3) LV (left ventricular) mural thrombus Current Visit: Yes Status: Chronic (4) Pulmonary edema Current Visit: Yes Status: Acute (5) NSTEMI (non-ST elevated myocardial infarction) Current Visit: Yes Status: Acute (6) Uncontrolled hypertension Current Visit: Yes Status: Acute (7) Morbid obesity Current Visit: Yes Status: Chronic (8) Noncompliance with medication regimen Current Visit: Yes Status: Chronic (9) RBBB Current Visit: Yes Status: Acute (10) History of congenital heart defect Current Visit: Yes Status: Chronic (11) NSVT (nonsustained ventricular tachycardia) Current Visit: Yes Status: Acute Subjective Date of service: 01/22/20 Principal diagnosis: New onset CHF, anticoagulation Interval history: pt resting in bed, BLE edema nearly resolved. tele reviewed - in SR HR 90s. Objective Last Vital Signs Temp 98.2 F 01/22/20 09:08 Pulse 58 L 01/22/20 09:08 Resp 20 01/22/20 09:08 BP 115/69 01/22/20 09:08 Pulse Ox 96 01/22/20 09:08 - Physical Examination General: No Apparent Distress HEENT: Positive: PERRL, Normocephaly, Mucus Membranes Moist Neck: Positive: neck supple, trachea midline Cardiac: Positive: Reg Rate and Rhythm, S1/S2 Lungs: Positive: Decreased Breath Sounds Neuro: Positive: Grossly Intact Abdomen: Negative: Tender Skin: Negative: Rash Musculoskeletal: No Pain Extremities: Present: edema (generalized), +2 Edema (BLE) - Labs and Meds Coagulation 01/22/20 Range/Units 06:10 PT 24.2 H (12.2-14.9) Sec. INR 2.15 H (0.87-1.13) Comprehensive Metabolic Panel 01/22/20 Range/Units 06:10 Sodium 135 L (137-145) mmol/L Potassium 3.0 L (3.6-5.0) mmol/L Chloride 85.3 L (98-107) mmol/L Carbon Dioxide 39 H (22-30) mmol/L BUN 10 (7-17) mg/dL Creatinine 0.8 (0.6-1.2) mg/dL Glucose 101 H (65-100) mg/dL Calcium 9.3 (8.4-10.2) mg/dL - Imaging and Cardiology EKG: report reviewed, image reviewed Echo: report reviewed (EF 40-45%, basal inferoseptal and mid inferoseptal akinesis, RA mildly dilated, RV mild to mod dilated, mod pulm HTN with RVSP 48mmHg, thrombus visualized in LV - fairly large and slightly mobile in apical area.) - Telemetry EKG Rhythm: Sinus Rhythm - EKG Sinus rhythms and dysrhythmias: sinus rhythm AV and intraventricular conduction: right bundle branch block
[2020-01-22] MEDS: POTASSIUM CHLORIDE ER 20 MEQ TAB PO SCH ×2 (12:09→13:41)
[2020-01-22 12:24] VITALS: BP 97/53
--- NOTE | 2020-01-22 15:19 | Discharge Summary ---
Providers - Providers Date of Admission: 01/16/20 15:09 Date of discharge: 01/22/20 Attending physician: MELVA MARY 01/15/20 23:43 Consult to Physician [CONS] Urgent Comment: Consulting Provider: AI MITCHELL Physician Instructions: Reason For Exam: nstemi, new onset chf, pulm edema, anasarca 01/18/20 12:09 Consult to Dietitian/Nutrition [CONS] Routine Physician Instructions: HF diet, fluid restriction Reason For Exam: Reason for Consult: Diet education 01/19/20 09:26 Physical Therapy Evaluation and Treat [CONS] Routine Comment: Reason For Exam: CHF Primary care physician: MANAGER BOOKS Hospitalization Condition: Stable Hospital course: --New onset of congestive heart failure Current Visit: Yes Status: Acute Plan to address problem: Antifailure medications, input output monitoring Diuretics, beta-blockers, CARMEN inhibitors, low-sodium diet Fluid restriction, Ejection fraction 40- 45% next Cardiology following --LV thrombus: Current Visit: Yes Status: Acute. Plan to address problem: Chronic anticoagulation with Coumadin Target INR 2-3, therapeutic INR today at 2.15 Cardiology cleared for DC --Nonspecific elevated troponin Current Visit: Yes Status: Acute Plan to address problem: On heparin drip for LV thrombus --History of hypertension Current Visit: Yes Status: Acute Plan to address problem: Blood pressure well controlled tions once reconciled and monitor vital signs closely. --discharge planning issues Current Visit: Yes Status: Acute Patient may be discharged tomorrow if INR more than 1.80 Patient on heparin drip Patient symptomatically better Closely monitor patient and adjust management as needed Plan of care reviewed with the patient and her nurse Cardiology cleared for discharge and follow-up per schedule Disposition: DC-01 TO HOME OR SELFCARE Time spent for discharge: 32 min Core Measure Documentation - Palliative Care Palliative Care/ Comfort Measures: Not Applicable - Core Measures Any of the following diagnoses?: none Exam - Constitutional Vitals: Temp Pulse Resp BP Pulse Ox 98.1 F 89 20 97/53 94 01/22/20 11:48 01/22/20 11:48 01/22/20 11:48 01/22/20 11:48 01/22/20 11:48 Plan Activity: advance as tolerated Diet: other (Cardiac diet) Additional Instructions: Follow up in our [place] office for INR check on 01/30/2020 @ 11:00AM. Follow up in our [place] office with Dr. Moore on 02/06/2020 @ 3:00PM. If you have worsening symptoms contact MD or go to emergency room. INR check in 2 to 3 days at [facility] office[Target INR 2-3] Follow up with: PRIMARY CARE, [Primary Care Provider] - 3-5 Days Forms: Warfarin Discharge Instruction Prescriptions: Aspirin [Aspirin BABY CHEW TAB] 81 mg PO QDAY #30 tab.chew carvediloL [Coreg] 6.25 mg PO BID #60 tablet Warfarin [Coumadin] 10 mg PO DAILY@1700 #30 tablet Losartan [Cozaar] 25 mg PO QDAY #30 tablet Furosemide [Lasix TAB] 40 mg PO 0600,1800 #60 tablet AtorvaSTATin [Lipitor] 40 mg PO QHS #30 tablet Potassium Chloride 20 meq PO QDAY #30 packet
[2020-01-22] MEDS: WARFARIN 10 MG TAB PO SCH (18:08)
== END 2020-01-22 19:26 | disposition home or self-care (01) | DRG 280 ==
LOC: ED 19:20 → 4A 23:58 → OBSVTOIN 01-16 15:09
PROVIDERS: ADMIT Internal Medicine Geriatric Medicine; ATTEND Internal Medicine
DX: I11.0 Hypertensive heart disease with heart failure (principal); I50.21 Acute systolic (congestive) heart failure; I21.A1 Myocardial infarction type 2; I47.2 Ventricular tachycardia; I42.9 Cardiomyopathy, unspecified; Z91.14 Patient's other noncompliance with medication regimen; Z68.31 Body mass index [BMI] 31.0-31.9, adult; E66.01 Morbid (severe) obesity due to excess calories; I45.10 Unspecified right bundle-branch block; Z87.74 Personal history of (corrected) congenital malformations of heart and circulatory system
CPT/HCPCS: 36415; 71046; 80048; 80053; 80061; 83690; 83880; 84484; 85014; 85018; 85025; 85049; 85520; 85610; 85730; 90471; 93005; 93306; 96361; 96365; 96366; 96367; 96368; 96375; G0378; A9270-GY; J1644; J1940